=== PATIENT | female | born 2005 | race Two or more races ===

== ENCOUNTER 2023-10-06 12:50 | Inpatient (IN) ==
[2023-10-06] MEDS ORDERED: ERTAPENEM SODIUM 500 MG in SYRINGE 0 ML IV STA (14:10)
[2023-10-06 14:14] LABS: Basophils # (auto) 0.05 K/uL (0.00-0.20); Basophils % (auto) 0.5 %; Hematocrit (blood only) 36.9 % (37.0-47.0); Hemoglobin 11.9 g/dl (12.0-16.0); Immature Granulocytes # (auto) 0.03 K/uL (0.01-0.20); Immature Granulocytes % (auto) 0.3 %; Lymphocytes # (auto) 1.62 K/uL (1.20-3.40); Lymphocytes % (auto) 16.5 %; Mean Corpuscular Hemoglobin 26.4 pg (25.0-34.0); Mean Corpuscular Hgb Conc 32.2 g/dL (32.0-36.0); Mean Platelet Volume 8.8 fL (9.4-12.4); Monocytes # (auto) 0.66 K/uL (0.11-0.59); Monocytes % (auto) 6.7 %; Neutrophils # (auto) 7.44 K/uL (1.40-6.50); Platelet Count 347 K/uL (130-400); RDW Coefficient of Variation 17.6 % (11.5-14.5); RDW Standard Deviation 51.9 fL (36.4-46.3)
--- NOTE | 2023-10-06 14:14 | Emergency Department Note ---
Impression & Plan Pyelonephritis, UTI (urinary tract infection), Failure of outpatient treatment ED Provider Note NAME: ARGENTINA SOLIZ AGE: 18 SEX: F : 2005 ARRIVES VIA: Walk-In INFORMANT: [Patient] ED PROVIDER(S): [Sai Kwong MD] CHIEF COMPLAINT: Urinary symptoms HISTORY OF PRESENT ILLNESS: The patient is a 18-year-old female who is currently at the [facility]. She was seen on the of this month, 3 days ago. She was diagnosed with a UTI and placed on Cipro. The patient's urine culture has returned growing an ESBL. Only a few IV antibiotics and oral Macrobid will work to treat the infection. The patient apparently has been having some flank pain with the urinary symptoms, because of the flank pain on top of the findings of ESBL, the patient was sent to the hospital for admission and IV antibiotic therapy. Macrobid will not work if flank pain/pyelonephritis is suspected. The patient has not had nausea or vomiting. No fever. She has a history of frequent UTI. She has been hospitalized before for urinary tract infections. PMHx/PSHx/Social Hx: See Below PHYSICAL EXAM: GENERAL: Patient is in no acute distress. HEENT: No acute trauma, normocephalic atraumatic, mucous membranes moist, no nasal congestion. NECK: No stridor, no adenopathy, no meningismus, trachea is midline. LUNGS: Clear to auscultation bilaterally, no wheeze, no rhonchi, breath sounds equal. HEART: Without murmurs gallops or rubs, regular rate and rhythm. ABDOMEN: Soft, nontender, no peritonitis. Obese. EXTREMITIES: No cyanosis, full range of motion of all the joints without pain or difficulty. NEUROLOGIC: Oriented x 3, no acute motor or sensory deficits, no focal weakness. SKIN: No jaundice, no diaphoresis. Back: Bilateral flank discomfort to percussion. Psychiatric: Cooperative, voluntary, resting comfortably on the stretcher. DIFFERENTIAL DIAGNOSIS: Resistant UTI, pyelonephritis, renal failure, dehydration, among others. EMERGENCY DEPARTMENT PROCEDURES: MEDICAL DECISION MAKING: There is no leukocytosis or worrisome anemia. There is a normal platelet count. No renal failure or significant electrolyte abnormality. No worrisome liver enzyme elevation. Urinalysis showed potential infection. testing was negative. Urine culture from her last visit did show a resistant E. coli. On exam, the patient was not febrile or toxic. She did have bilateral flank discomfort. Patient by exam and history has pyelonephritis. Macrobid is not going to be sufficient. Based on her urine culture results, she requires IV antibiotics. She was given IV ertapenem. The patient will need a hospital stay for IV antibiotic therapy. She cannot be treated as an outpatient. She cannot be discharged back to the [facility] at this time. The patient is aware of her findings, she understands the reason for a hospital stay. Case management was consulted, the on-call hospitalist was consulted. Prior/Outside records/notes reviewed: Yesterday's pharmacy now describing her culture results and the need for a change in treatment Imaging/x-ray results per my interpretation: Chronic Medical/Social conditions affecting care: Currently an inpatient at the [facility]. Care/Management discussed with: Case management, the on-call hospitalist. Level of care consideration(s): After review of the information above and other included data: --I believe the patient requires escalation of care to admission DISPOSITION: Admission Past Med/Surg History Problem List Failure of outpatient treatment (Acute) UTI (urinary tract infection) (Acute) Symptoms of urinary tract infection (Acute) Acute urinary retention (Acute) Abdominal pain (Acute) Medical History Pyelonephritis Constipation Social History Smoking Status: Former smoker Tobacco Type: E-cigarettes / Vaping Second Hand Exposure: No; Do You Dip or Chew Tobacco: No; Tobacco Cessation Education Requested by Patient: No Hx Alcohol Use: Yes Alcohol type: hard liquor Hx Substance Use: Yes Last Used Substance Other:: 2022 Preferred Language: Serbian Communication Ability: Effective Hotel Office Manager Required: No Beliefs That Will Affect Care: None Current Living Situation: Parent Other Information That Helps Us Care for You: No Feels Safe at Home: Yes Assistive Devices: Glasses Allergies Allergies Allergy/AdvReac Type Severity Reaction Status Date / Time No Known Allergies Allergy Verified 10/03/23 00:53 Home Meds Home Medications Medication Instructions Recorded Confirmed albuterol sulfate 90 mcg/actuation 2 puff inhalation QID PRN 10/06/23 10/06/23 aerosol inhaler (Ventolin HFA) Shortness Of Breath Or Wheezing aripiprazole 20 mg tablet 20 mg PO HS 10/06/23 10/06/23 clotrimazole 2 % vaginal cream 1 appful vaginal HS 10/06/23 10/06/23 (Gyne-Lotrimin) famotidine 20 mg tablet 20 mg PO BID 10/06/23 10/06/23 ferrous sulfate 325 mg (65 mg 325 mg PO DAILY 10/06/23 10/06/23 iron) tablet fluticasone 100 mcg-salmeterol 50 1 inh inhalation BID 10/06/23 10/06/23 mcg/dose blistr powdr for inhalation haloperidol 10 mg tablet 10 mg PO Q8H PRN aggression 10/06/23 10/06/23 hydroxyzine HCl 50 mg tablet 50 mg PO BID PRN Anxiety 10/06/23 10/06/23 lamotrigine 300 mg tablet,extended 300 mg PO DAILY 10/06/23 10/06/23 release 24 hr lorazepam 1 mg tablet 1 mg PO Q8H PRN Anxiety 10/06/23 10/06/23 metformin 500 mg tablet 500 mg PO BIDWMEAL 10/06/23 10/06/23 nitrofurantoin 100 mg capsule 100 mg PO BID 10/06/23 10/06/23 oxcarbazepine 150 mg tablet 450 mg PO BID 10/06/23 10/06/23 (Trileptal) pantoprazole 40 mg tablet,delayed 40 mg PO DAILY 10/06/23 10/06/23 release pregabalin 75 mg capsule 75 mg PO BID 10/06/23 10/06/23 sennosides 8.6 mg capsule (senna) 8.6 mg PO DAILY PRN Constipation 10/06/23 10/06/23 sertraline 100 mg tablet 200 mg PO HS 10/06/23 10/06/23 trazodone 100 mg tablet 100 mg PO HS 10/06/23 10/06/23 Previous Rx's Medication Instructions Recorded polyethylene glycol 3350 17 17 g PO DAILY #510 grams 10/03/23 gram/dose oral powder (Miralax) Results & Data (ED) Vital Signs Vital Signs - 24 hr 10/06/23 12:54 Temperature 36.8 C Temperature Source Temporal Artery Scan Pulse Rate 94 H Respiratory Rate 18 Blood Pressure 116/75 Blood Pressure Mean 88 Pulse Oximetry 96 Sepsis Recent Fever Within 48 Hours No Sepsis New/Unexplained Change in Mental Status No Sepsis Action Taken by Nursing No Action Required Home Medications Current Medication List: was personally reviewed by me Laboratory Data Attestation: I reviewed the patient's lab results. 10/06/23 13:50 10/06/23 13:50 Lab Results 10/06/23 10/06/23 10/06/23 Range/Units 12:58 13:50 13:57 WBC 9.80 (4.8-10.8) K/ul RBC 4.50 (4.20-5.40) M/uL Hgb 11.9 L (12.0-16.0) g/dl Hct 36.9 L (37.0-47.0) % MCV 82.0 (80.0-100.0) fL MCH 26.4 (25.0-34.0) pg MCHC 32.2 (32.0-36.0) g/dL RDW Std Deviation 51.9 H (36.4-46.3) fL RDW Coeff of Aletha 17.6 H (11.5-14.5) % Plt Count 347 (130-400) K/uL MPV 8.8 L (9.4-12.4) fL Immature Gran % (Auto) 0.3 % Neut % (Auto) 76.0 % Lymph % (Auto) 16.5 % Upson % (Auto) 6.7 % Eos % (Auto) 0.0 % Baso % (Auto) 0.5 % Neut # (Auto) 7.44 H (1.40-6.50) K/uL Lymph # (Auto) 1.62 (1.20-3.40) K/uL Upson # (Auto) 0.66 H (0.11-0.59) K/uL Eos # (Auto) 0.00 (0.00-0.50) K/uL Baso # (Auto) 0.05 (0.00-0.20) K/uL Immature Gran # (Auto) 0.03 (0.01-0.20) K/uL Sodium 138 (136-145) mmol/L Potassium 4.1 (3.5-5.1) mmol/L Chloride 104 (98-107) mmol/L Carbon Dioxide 30 (21-32) mmol/L Anion Gap 4 (3-11) BUN 11 (6-23) mg/dl Creatinine 0.72 (0.6-1.2) mg/dl Est Cr Clr Drug Dosing 182.6 ml/min Est GFR ( Amer) 139.7 ml/min Est GFR (Non-Af Amer) 120.6 ml/min BUN/Creatinine Ratio 15.3 (10-20) Glucose 85 (70-99(Fasting)) mg/dl Calcium 9.3 (8.6-10.3) mg/dl Total Bilirubin 0.2 (0.2-1.0) mg/dl AST 13 (13-39) U/L ALT 18 (7-52) U/L Alkaline Phosphatase 75 (34-104) U/L Total Protein 7.3 (6.0-8.3) gm/dl Albumin 4.0 (3.4-5.0) gm/dl Globulin 3.3 (2.5-4.0) gm/dl Albumin/Globulin Ratio 1.2 (0.9-2) Urine Color Dark Yellow Urine Appearance Cloudy A (Clear) Urine pH 7.5 (4.5-7.5) Ur Specific [place] 1.025 (1.000-1.030) Urine Protein 1+ H (Negative) Urine Glucose (UA) Negative (Negative) Urine Ketones Trace H (Negative) Urine Blood 3+ H (Negative) Urine Nitrite Negative (Negative) Urine Bilirubin Negative (Negative) Urine Urobilinogen Negative (Negative) Ur Leukocyte Esterase 1+ H (Negative) Urine WBC (Auto) 6-10 H (0-5) /hpf Urine RBC (Auto) >20 H (0-2) /hpf U Hyaline Cast (Auto) 0-2 (0-2) /lpf U Epithel Cells (Auto) 6-10 H (0-2) /hpf Urine Bacteria (Auto) None Seen (None Seen) POC Ur Test NEG (NEG) Administered Medications Discontinued Medications Ertapenem 1,000 mg/ Syringe 10 mls @ 2 mls/min IV NOW STA Stop: 10/06/23 14:29 Last Admin: 10/06/23 15:05 Dose: 2 mls/min Documented By: HARMEET Metformin HCl (Metformin Hcl 500 Mg Tab) [facility] Stop: 11/05/23 16:59 Last Admin: 10/06/23 17:46 Dose: Not Given Documented By: DEMETRIO Discharge Plan Visit Data Chief Complaint: Urinary Symptoms Stated Complaint: UTI ED Provider: Sai Kwong Discharge Problem: Pyelonephritis, UTI (urinary tract infection), Failure of outpatient treatment Patient Disposition: Admitted As Inpatient Condition: Good Discharge Instructions Interventions: ED Discharge Assessment Last Done: 10/06/23 16:17 Discharge Problem: UTI (urinary tract infection) Qualifiers: Urinary tract infection type: acute pyelonephritis Qualified Code(s): N10 - Acute pyelonephritis
[2023-10-06 14:19] LABS: Albumin Globulin Ratio 1.2 (0.9-2); BUN Creatinine Ratio 15.3 (10-20); Bilirubin,Total 0.2 mg/dl (0.2-1.0); Calcium 9.3 mg/dl (8.6-10.3); Creatinine Clr Calc Pharmacy 182.6 ml/min; Est GFR (African American) 139.7 ml/min; Est GFR (Non-African American) 120.6 ml/min; Globulin 3.3 gm/dl (2.5-4.0); Potassium 4.1 mmol/L (3.5-5.1); Total Protein 7.3 gm/dl (6.0-8.3)
[2023-10-06 14:23] LABS: Appearance Urine Cloudy (Clear); Bacteria Urine Automated None Seen (None Seen); Bilirubin Urine Negative (Negative); Blood Urine 3+ (Negative); Cast Urine Automated 0-2 /lpf (0-2); Color Urine Dark Yellow; Glucose Urine UA Negative (Negative); Ketones Urine Trace (Negative); Leukocyte Esterase Urine 1+ (Negative); Nitrite Urine Negative (Negative); Protein Urine 1+ (Negative); RBC Urine Automated >20 /hpf (0-2); Specific Gravity Urine 1.025 (1.000-1.030); Urobilinogen Urine Negative (Negative); pH Urine 7.5 (4.5-7.5)
--- NOTE | 2023-10-06 14:27 | History & Physical Report ---
Date of Service October 06, 2023 Assessment & Plan (1) UTI due to extended-spectrum beta lactamase (ESBL) producing Escherichia coli: (2) Recurrent UTI: Plan: Patient is 18 year old female with PMH recurrent UTI, pyelonephritis, depression, anxiety, bipolar, schizoaffective disorder, seizure disorder, asthma, migraine headache, iron deficiency anemia, PCOS, obesity presented to ER for abnormal urine culture. Urinary symptoms and abdominal and bilateral back p ain since 09/16/23. Tried on multiple outpatient antibiotics. 10/01/[address] abdomen pelvis and was started on Cipro for UTI 10/01/23 urine culture +ESBL e coli. 10/05/23 was recommended to discontinue cipro and start macrobid however pt with continued symptoms In ER afebrile, vitals stable. No leukocytosis In ER given ertapenem Will continue ertapenem CBC, BMP in am (3) Suicidal ideation: (4) Schizoaffective disorder: (5) Depression with anxiety: Plan: Currently at [facility] as voluntary admission for suicidal ideation and reported cutting and auditory hallucinations. Currently "feel better if I was just " but denies any active plan Will continue current medications that has been on from [facility] to one observation Suicide precautions Mental health consult (6) Asthma: Plan: No signs acute exacerbation Continue home inhalers (7) GERD (gastroesophageal reflux disease): Plan: Continue PPI, famotidine (8) Seizure disorder: Plan: Last reported seizure 01/2023 Continue home Lamictal (9) Iron deficiency anemia: Plan: H&H stable Continue ferrous sulfate DVT Prophylaxis- sc lovenox, Ambulate Admit med surg Full Code as per discussion with pt Pt was seen and care coordinated with Dr Shirley. See addendum I spent a total of 78 minutes reviewing notes, outpatient records, labs, medication, coordinating, documenting and providing care for this patient excluding time spent in the performance of separately billed services. History of Present Illness Chief Complaint: Abnormal urine culture Primary Care Provider: NO PCP Patient is 18 year old female with PMH recurrent UTI, pyelonephritis, depression, anxiety, bipolar, schizoaffective disorder, seizure disorder, asthma, migraine headache, iron deficiency anemia, PCOS, obesity presented to ER for abnormal urine culture. History obtained from patient as well as outpatient chart review. Patient reports dysuria, urinary frequency, urinary hesitancy and intermittent urinary retention as well as bilateral flank and lower abdominal pain since 09/16/2023. She is currently at the [facility] for the past 3 weeks per patient for suicidal ideations and auditory hallucinations. Patient reports was started on Bactrim for UTI followed by Augmentin however s ymptoms never improved. She was seen here at [facility] ER on 10/01/2023 for back and abdominal pain and urinary symptoms and had unremarkable CT abdomen pelvis and was started on Cipro for UTI per notes. Seen again on 10/03/23 in ER for urinary retention requiring straight cath and then able to self urinate. 10/01/23 urine culture +ESBL e coli. 10/05/23 was recommended to discontinue cipro and start macrobid. Reports chronic constipation. Reports chronic daily headaches and feels this is baseline. Denies other abdominal pain. Reports chronic SOB and denies any increased SOB or cough or wheezing. Denies fever/chills, diaphoresis, N/V/D, dizziness, syncope, vision changes, neck pain, CP, sore throat, otalgia, rhinorrhea, extremity weakness, extremity edema, rashes, urinary symptoms. Currently at [facility] as voluntary admission for suicidal ideation and reported cutting and auditory hallucinations. She states currently "feel better if I was just " but denies any active plan today to this provider. She states she has auditory hallucinations that tell her to hurt or kill herself. Patient states that she has been becoming agitated while hospitalized because she is frustrated with the voices talking to her. She admits to feeling depressed. She states she is currently living in [place], [place] but is from [place]. Patient reports history recurrent psych admissions since age 12 for similar symptoms. ER case contacted [facility] reported unable to provide daily transport for patient to receive outpatient IV antibiotics. Allergies Allergy/AdvReac Type Severity Reaction Status Date / Time No Known Allergies Allergy Verified 10/03/23 00:53 Home Medications Medication Instructions Recorded Confirmed Type polyethylene glycol 3350 17 17 g PO DAILY #510 grams 10/03/23 10/06/23 Rx gram/dose oral powder (Miralax) albuterol sulfate 90 mcg/actuation 2 puff inhalation QID PRN 10/06/23 10/06/23 History aerosol inhaler (Ventolin HFA) Shortness Of Breath Or Wheezing aripiprazole 20 mg tablet 20 mg PO HS 10/06/23 10/06/23 History clotrimazole 2 % vaginal cream 1 appful vaginal HS 10/06/23 10/06/23 History (Gyne-Lotrimin) famotidine 20 mg tablet 20 mg PO BID 10/06/23 10/06/23 History ferrous sulfate 325 mg (65 mg 325 mg PO DAILY 10/06/23 10/06/23 History iron) tablet fluticasone 100 mcg-salmeterol 50 1 inh inhalation BID 10/06/23 10/06/23 History mcg/dose blistr powdr for inhalation haloperidol 10 mg tablet 10 mg PO Q8H PRN aggression 10/06/23 10/06/23 History hydroxyzine HCl 50 mg tablet 50 mg PO BID PRN Anxiety 10/06/23 10/06/23 History lamotrigine 300 mg tablet,extended 300 mg PO DAILY 10/06/23 10/06/23 History release 24 hr lorazepam 1 mg tablet 1 mg PO Q8H PRN Anxiety 10/06/23 10/06/23 History metformin 500 mg tablet 500 mg PO BIDWMEAL 10/06/23 10/06/23 History nitrofurantoin 100 mg capsule 100 mg PO BID 10/06/23 10/06/23 History oxcarbazepine 150 mg tablet 450 mg PO BID 10/06/23 10/06/23 History (Trileptal) pantoprazole 40 mg tablet,delayed 40 mg PO DAILY 10/06/23 10/06/23 History release pregabalin 75 mg capsule 75 mg PO BID 10/06/23 10/06/23 History sennosides 8.6 mg capsule (senna) 8.6 mg PO DAILY PRN Constipation 10/06/23 10/06/23 History sertraline 100 mg tablet 200 mg PO HS 10/06/23 10/06/23 History trazodone 100 mg tablet 100 mg PO HS 10/06/23 10/06/23 History Past Med/Surg History Problem List (Updated 10/06/23 @ 19:12 by Isabell Leal PA-C) Suicidal ideation UTI due to extended-spectrum beta lactamase (ESBL) producing Escherichia coli History of migraine Iron deficiency anemia Seizure disorder Depression with anxiety Schizoaffective disorder Recurrent UTI Obesity GERD (gastroesophageal reflux disease) Asthma Failure of outpatient treatment (Acute) UTI (urinary tract infection) (Acute) Symptoms of urinary tract infection (Acute) Acute urinary retention (Acute) Abdominal pain (Acute) Medical History (Updated 10/06/23 @ 19:12 by Isabell Leal PA-C) Pyelonephritis Constipation Surgical History (Updated 10/06/23 @ 19:08 by Isabell Leal PA-C) Hx of tonsillectomy Social History Smoking Status: Former smoker Tobacco Type: E-cigarettes / Vaping Second Hand Exposure: No; Do You Dip or Chew Tobacco: No; Tobacco Cessation Education Requested by Patient: No Hx Alcohol Use: Yes Alcohol type: hard liquor Hx Substance Use: Yes Last Used Substance Other:: 2022 Preferred Language: Gambian Communication Ability: Effective Veneer Taping Machine Offbearer Required: No Beliefs That Will Affect Care: None Current Living Situation: Parent Other Information That Helps Us Care for You: No Feels Safe at Home: Yes Assistive Devices: Glasses Review of Systems Review of Systems: All systems reviewed & are unremarkable except as noted in HPI & below Physical Exam Physical Exam: General: no distress, obese female Head: normocephalic, atraumatic Eyes: conjunctiva non-injected, anicteric ENT: normal inspection external ears, nose, mucous membranes moist Neck: supple, trachea midline Lungs: clear, no respiratory distress, no wheezing/rhonchi/rales CV: RRR, no murmur, no pretibial edema Abd: protuberant, normal BS, soft, + diffuse tenderness to palpation entire lower abdomen and bilateral CVA tenderness Ext: no cyanosis, no calf tenderness Neuro: A&O x 3, no focal deficits noted, somewhat flat affect Skin: warm, dry Results & Data Results & Data Vital Signs (Past 12 Hours) Vital Signs Temp Pulse Resp BP Pulse Ox 10/06/23 12:54 36.8 C 94 H 18 116/75 96 Laboratory Results Short CBC 10/06/23 Range/Units 13:50 WBC 9.80 (4.8-10.8) K/ul Hgb 11.9 L (12.0-16.0) g/dl Hct 36.9 L (37.0-47.0) % Plt Count 347 (130-400) K/uL BMP 10/06/23 13:50 Sodium 138 Potassium 4.1 Chloride 104 Carbon Dioxide 30 BUN 11 Creatinine 0.72 Glucose 85 Calcium 9.3 Liver Function 10/06/23 Range/Units 13:50 Total Bilirubin 0.2 (0.2-1.0) mg/dl AST 13 (13-39) U/L ALT 18 (7-52) U/L Alkaline Phosphatase 75 (34-104) U/L Albumin 4.0 (3.4-5.0) gm/dl Urine 10/06/23 Range/Units 13:57 Urine Color Dark Yellow Urine Appearance Cloudy A (Clear) Urine pH 7.5 (4.5-7.5) Ur Specific [place] 1.025 (1.000-1.030) Urine Protein 1+ H (Negative) Urine Glucose (UA) Negative (Negative) Supervising Physician Co-Signing Physician Notes Patient was seen and examined with Isabell POWERS at bedside. Chart reviewed. Case discussed with Isabell POWERS and agree with the documentation above. In summary, this is a 18 year old female with schizoaffective disorder/bipolar/borderline personality disorder, depression/anxiety, suicidal ideation and attempts, morbid obesity, recurrent UTI who was brought back to ED for ESBL E Coli UTI for IV antibiotics. She is currently at [facility]. I spoke to if she can get the daily IV antibiotic at [facility] but I was told that the facility can not transport her daily. Will start on iv ertapenem 1 gm q24hr for her complicated UTI with clinical pyelonephritis. Not septic or toxic but is at risk for agitation given her hsitory. Unfortunately, she will be here to complete IV antibiotics duration given her psych history. On exam, morbidly obese, lying comfortably in bed, drowsy due to sedating medications she received prior to ER transfer for agitation, but conversing appropriately, chest clear, heart sounds normal, abd benign, calm, cooperative. Rest as per the note above.
[2023-10-06] MEDS: ERTAPENEM SODIUM 1,000 MG in SYRINGE 0 ML IV STA (15:05)
[2023-10-06] MEDS ORDERED: ONDANSETRON INJ 2 MG/ML 2 ML VIAL IV PRN (16:34)
[2023-10-06] MEDS ORDERED: ALBUTEROL HFA 8 GM INHALER INH PRN (16:36)
[2023-10-06] MEDS ORDERED: Nursing to Pharmacy Communication SCH (17:30)
[2023-10-06] MEDS: metFORMIN HCL 500 MG TAB PO SCH ×2 (17:46→21:01)
[2023-10-06] MEDS: CLOTRIMAZOLE VAGINAL CR 7 APPLN/45 GM TUBE PV SCH (20:59)
[2023-10-06] MEDS: PREGABALIN 75 MG CAP PO SCH (20:59)
[2023-10-06] MEDS: FAMOTIDINE 20 MG TAB PO SCH (20:59)
[2023-10-06] MEDS: SERTRALINE HCL 100 MG TABLET PO SCH (21:00)
[2023-10-06] MEDS: ARIPiprazole 10 MG TAB PO SCH (21:00)
[2023-10-06] MEDS: OXcarbazepine 150 MG TABLET PO SCH (21:00)
[2023-10-06] MEDS: traZODone HCL 100 MG TAB PO SCH (21:00)
[2023-10-06] MEDS: ACETAMINOPHEN 325 MG TAB PO PRN (21:10)
--- OUTSIDE RECORDS SUMMARY | 2023-10-06 21:45 | External Medical Summary ---
Author Name Unknown Address Unknown Organization K1M:[facility] [address] [place] [id number] Laboratory Report Ordering Provider Test Date Status LAVELLEMYDER 09/14/2023 19:08 Final Observation Date Value Abnormality Reference (Units ) Status Salicylates 09/14/2023 19:08 <3.0 Below low normal 15.0 -30.0 (mg/dL) Final This assay should not be use d for patients receiving
Sulfasalazine. The potential exists for reporting falsely
elevated results from patients who have been administered
Sulfasalazine. Performing Location [facility] [address] [place] [id number]
--- OUTSIDE RECORDS SUMMARY | 2023-10-06 21:45 | External Medical Summary ---
Author Name Unknown Address Unknown Organization M:[facility] [address] [place] [address] Laboratory Report Ordering Provider Test Date Status DIANA VALDERRAMA 09/14/2023 19:08 Final Observation Date Value Abnormality Reference (Units ) Status Glucose 09/14/2023 19:08 =90 74-106 (mg/dL) Final BUN 09/14/2023 19:08 =8 Below low normal 9-23 (mg/dL) Final Creatinine 09/14/2023 19:08 =0.73 0.55-1.30 (mg/dL) Final Calcium 09/14/2023 19:08 =9.5 8.7-10.4 (mg/dL) Final Protein 09/14/2023 19:08 =7.5 5.7-8.2 (g/dL) Final Albumin 09/14/2023 19:08 =3.7 3.4-5.0 (g/dL) Final Bilirubin, Total 09/14/2023 19:08 =0.30 0.3-1.20 (mg/dL) Final AST (Aspartate aminotransferase) 09/14/2023 19:08 =9 Below low normal 13-40 (U/L) Final ALT (Alanine aminotransferase) 09/14/2023 19:08 =22 7-40 (U/L) Final Alk Phos 09/14/2023 19:08 =77 46-116 (U/L) Final Sodium 09/14/2023 19:08 =140 136-145 (mmol/L) Final Potassium 09/14/2023 19:08 =3.9 3.4-5.1 (mmol/L) Final Cl 09/14/2023 19:08 =107 98-107 (mmol/L) Final CO2 09/14/2023 19:08 =26.0 20.0-31.0 (mmol/L) Final Glomerular filtration rate/1.73 sq M.predicted among non-blacks [Volume Rate/Area] in Serum, Plasma or Blood by Creatinine-based formula (CKD-EPI) 09/14/2023 19:08 >60.0 60.0-128.0 Final The Glomerular Filtration Ra te result is an estimation only
and is based on the CKD-EPI 2020 equation that does not use
a race coefficient. For eGFRcr 80-90% of values are within
30% of measured GFR. It is not suitable for patients less
than 17 years of age or for patients receiving dialysis
therapy. Results may deviate from true GFR values with
extremes of body composition, dietary intake, severe liver
disease, alteration in creatinine generation, conditions
with extra renal elimination of creatinine, or drugs that
affect tubular secretion of creatinine. Normal eGFRcr
varies according to age, sex and body composition.
NKF KDOQI and KDIGO guidelines recommend ordering urine
microalbumin/creatinine ratio and/or cystatin C for patients
with eGFRcr of 45-59 ML/MIN/1.73 m2. Performing Location [facility] [address] [place] [address]
--- OUTSIDE RECORDS SUMMARY | 2023-10-06 21:45 | External Medical Summary ---
Author Name Unknown Address Unknown Organization K1M:[facility] [address] [place] [id number] Laboratory Report Ordering Provider Test Date Status DIANA VALDERRAMA 09/14/2023 19:08 Final Observation Date Value Abnormality Reference (Units ) Status aPTT, 0 Min 09/14/2023 19:08 =32.8 Above high normal 23. 9-29.9 (s) Final The activated partial thromb oplastin time (APTT) is the test
of choice for monitoring anticoagulant therapy with
unfractionated heparin. An APTT range of 40.7-73.9 seconds
is considered therapeutic for heparin doses with a
concentration of 0.3-0.5 IU/mL. The APTT is not an
appropriate test for monitoring the effects of low molecular
weight heparin. For low molecular weight heparin,
monitoring is often not necessary, but the heparin anti-Xa
assay may be used. With this assay the therapeutic range
for low molecular wieght heparin is 0.6-1.0 IU/ml. The
prophylactic range is 0.1-0.5 IU/ml. Performing Location [facility] [address] [place] [id number]
--- OUTSIDE RECORDS SUMMARY | 2023-10-06 21:45 | External Medical Summary ---
Author Name Unknown Address Unknown Organization K1M:[facility] [address] [place] [address] Laboratory Report Ordering Provider Test Date Status DIANA VALDERRAMA 09/14/2023 19:08 Final Observation Date Value Abnormality Reference (Units ) Status Prothrombin time (PT) in Blood by Coagulation assay 09/14/2023 19:08 =10.9 9.6-12.3 (s) Final INR 09/14/2023 19:08 =0.96 Fin al The prothrombin time (PT) te st is the test of choice for
monitoring anticoagulant treatment with warfarin. An INR
range of 2.0-3.0 is considered therapeutic for most
indications such as DVT/PE, atrial fibrillation and
myocardial infarction while an INR range of 2.5-3.5 is
considered therapeutic for patients with mechanical heart
valves. Performing Location [facility] [address] [place], [place] [id number]
--- OUTSIDE RECORDS SUMMARY | 2023-10-06 21:45 | External Medical Summary ---
Author Name Unknown Address Unknown Organization K1M:[facility] [address] [place] [address] Laboratory Report Ordering Provider Test Date Status DIANA VALDERRAMA 09/14/2023 19:08 Final Observation Date Value Abnormality Reference (Units ) Status Acetaminophen 09/14/2023 19:08 <2.0 Below low normal 10 .0-20.0 (ug/mL) Final Performing Location [facility] [address] [place] [address]
--- OUTSIDE RECORDS SUMMARY | 2023-10-06 21:45 | External Medical Summary ---
Author Name Unknown Address Unknown Organization K1M:[facility] [address] [place] [address] Laboratory Report Ordering Provider Test Date Status DIANA VALDERRAMA 09/14/2023 11:39 Final Observation Date Value Abnormality Reference (Units ) Status MDMA+METABOLITES 09/14/2023 11:39 Negative Cutoff =250 Final Performed at: XB - [facility]
[address] [place] [id number]
Dental Intern: Gin Walsh MD, Phone: [phone] Performing Location [facility] [address] [place] [address]
--- OUTSIDE RECORDS SUMMARY | 2023-10-06 21:45 | External Medical Summary ---
Author Name Unknown Address Unknown Organization K1M:[facility] [address] [place] [address] Laboratory Report Ordering Provider Test Date Status DIANA VALDERRAMA 09/14/2023 11:39 Final Urine Specimen Type Clean Ca tch Specimen
Has specimen been collected/obtained? Y Observation Date Value Abnormality Reference (Units ) Status Color, Urine 09/14/2023 11:39 YELLOW Final Clarity, Urine 09/14/2023 11:39 Slightly-Cloudy Final Specific gravity, Urine 09/14/2023 11:39 =1.026 1.003-1.035 Final pH, Urine 09/14/2023 11:39 =6 5-7 Final Glucose [Presence] in Urine 09/14/2023 11:39 [id number] NEGATIVE Final Bilirubin.total [Presence] in Urine by Automated test strip 09/14/2023 11:39 [id number] NEGATIVE Final Ketones, Urine 09/14/2023 11:39 [id number] NEGATIVE Final Blood [Presence] in Urine by Visual 09/14/2023 11:39 [id number] NEGATIVE Final Protein, Urine 09/14/2023 11:39 NEGATIVE NEGATIVE Final Note: For females N EG - TRACE Urobilinogen [Presence] in Urine by Automated test strip 09/14/2023 11:39 0.2-1.0 0.2-1.0 Final Nitrite, Urine 09/14/2023 11:39 [id number] NEGATIVE Final Leukocyte esterase [Presence] in Urine by Automated test strip 09/14/2023 11:39 [id number] NEGATIVE Fin al Erythrocytes [Presence] in Urine sediment by Light microscopy 09/14/2023 11:39 0-2 <6-10 Final Leukocytes [Presence] in Urine sediment by Light microscopy 09/14/2023 11:39 0-5 <6-10 Final Epithelial cells.squamous [Presence] in Urine by Automated 09/14/2023 11:39 FEW Above upper panic limits <FEW Final Bacteria [Presence] in Urine by Automated 09/14/2023 11:39 RARE Above upper panic limits <RARE Final Mucus [#/area] in Urine sediment by Automated count 09/14/2023 11:39 MODERATE Above upper panic limits <RARE Final Performing Location [address] [address]
--- OUTSIDE RECORDS SUMMARY | 2023-10-06 21:45 | External Medical Summary ---
Author Name Unknown Address Unknown Organization K1M:[facility] [address] [place] [address] Laboratory Report Ordering Provider Test Date Status LAVELLEMYDER 09/14/2023 19:08 Final Observation Date Value Abnormality Reference (Units ) Status Salicylates 09/14/2023 19:08 <3.0 Below low normal 15.0 -30.0 (mg/dL) Final This assay should not be use d for patients receiving
Sulfasalazine. The potential exists for reporting falsely
elevated results from patients who have been administered
Sulfasalazine. Performing Location [facility] [address] [place] [id number]
--- OUTSIDE RECORDS SUMMARY | 2023-10-06 21:45 | External Medical Summary ---
Author Name Unknown Address Unknown Organization K1M:[facility] [address] [place] [address] Laboratory Report Ordering Provider Test Date Status DIANA VALDERRAMA 09/14/2023 19:08 Final Observation Date Value Abnormality Reference (Units ) Status Acetaminophen 09/14/2023 19:08 <2.0 Below low normal 10 .0-20.0 (ug/mL) Final Performing Location [facility] [address] [place] [address]
--- OUTSIDE RECORDS SUMMARY | 2023-10-06 21:45 | External Medical Summary ---
Author Name Unknown Address Unknown Organization K1M:[facility] [address] [place] [address] Laboratory Report Ordering Provider Test Date Status LAVELLEDIANA 09/14/2023 19:14 Final Document if MAT GAUGER or OP type sp ecimen. MAT GAUGER
Has specimen been collected/obtained? Y Observation Date Value Abnormality Reference (Units ) Status SARS-CoV-2 (COVID-19) RNA [Presence] in Specimen by VICTOR MANUEL with probe detection 09/14/2023 19:14 NEGATIVE NEGATIVE Final Negative results do not prec lude SARS-CoV-2 infection and
should not be used as the sole basis for treatment or other
patient management decisions. Negative results must be
combined with clinical observations, patient history, and
epidemiological information.

SARS-CoV-2 tests at [facility] are performed
either on the [employer] GeneXpert or [employer].
Both tests are real-time polymerase chain reaction (PCR)
tests designed to detect RNA from SARS-CoV-2. Performing Location [facility] [address] [place] [address]
--- OUTSIDE RECORDS SUMMARY | 2023-10-06 21:45 | External Medical Summary ---
Author Name Unknown Address Unknown Organization M:[facility] [address] [place] [address] Laboratory Report Ordering Provider Test Date Status DIANA VALDERRAMA 09/14/2023 19:08 Final Observation Date Value Abnormality Reference (Units ) Status WBC, Total 09/14/2023 19:08 =11.0 Above high normal 3.2-10.6 (10*3/uL) Final RBC 09/14/2023 19:08 =4.92 3.67-5.38 (10*6/uL) Final Hemoglobin 09/14/2023 19:08 =12.6 11.0-15.7 (g/dL) Final HCT 09/14/2023 19:08 =40.1 34.3-47.5 (%) Final MCV 09/14/2023 19:08 =81.5 Below low normal 83.0-101.0 (fL) Final MCH 09/14/2023 19:08 =25.6 Below low normal 27.6-33.6 (pg) Final MCHC 09/14/2023 19:08 =31.4 Below low normal 31.5-35.0 (g/dL) Final RDW 09/14/2023 19:08 =19.2 Above high normal 11.3-15.4 (%) Final Platelets 09/14/2023 19:08 =352 125-367 (10*3/uL) Final MPV 09/14/2023 19:08 =8.6 Below low normal 8.9-12.5 (fL) Final Absolute Segs 09/14/2023 19:08 =79.9 (%) Final Lymphs % 09/14/2023 19:08 =14.2 (%) Final Monos 09/14/2023 19:08 =5.3 (%) Final Eosinophils 09/14/2023 19:08 =0.0 (%) Final Basos 09/14/2023 19:08 =0.3 (%) Final Immature Granulocyte, Percent 09/14/2023 19:08 =0.3 (%) Final Nucleated erythrocytes/100 leukocytes [Ratio] in Blood by Automated count 09/14/2023 19:08 =0.0 (%) Final Absolute Segs 09/14/2023 19:08 =8.8 Above high normal 1.2-7.3 (10*3/uL) Final Lymphocytes [#/volume] in Specimen by Automated count 09/14/2023 19:08 =1.6 0.5-3.5 (10*3/uL) Final Monos, Abs 09/14/2023 19:08 =0.6 0.2-0.7 (10*3/uL) Final Eos, Abs 09/14/2023 19:08 =0.0 0.0-0.4 (10*3/uL) Final Basos, Abs 09/14/2023 19:08 =0.0 0.0-0.2 (10*3/uL) Final Immature granulocytes [#/volume] in Blood 09/14/2023 19:08 =0.0 0.0-0.1 (10*3/uL) Final Nucleated erythrocytes/100 leukocytes [Ratio] in Blood by Automated count 09/14/2023 19:08 =0.0 0.0-0.0 (10*3/uL) Final Performing Location [facility] [address] [place] [address]
--- OUTSIDE RECORDS SUMMARY | 2023-10-06 21:45 | External Medical Summary ---
Author Name Unknown Address Unknown Organization K1M:[facility] [address] [place] [address] Laboratory Report Ordering Provider Test Date Status DIANA VALDERRAMA 09/14/2023 19:08 Final Observation Date Value Abnormality Reference (Units ) Status Choriogonadotropin ( test) [Presence] in Serum by Rapid immunoassay 09/14/2023 19:08 [id number] NEGATIVE Final Performing Location [facility] [address] [place] [address]
--- OUTSIDE RECORDS SUMMARY | 2023-10-06 21:45 | External Medical Summary ---
Author Name Unknown Address Unknown Organization K1M:[facility] [address] [place] [address] Laboratory Report Ordering Provider Test Date Status DIANA VALEDRRAMA 09/14/2023 19:08 Final Observation Date Value Abnormality Reference (Units ) Status TSH 09/14/2023 19:08 =1.72 0.55-4.78 (u[ iU]/mL) Final Performing Location [facility] [address] [place] [address]
--- OUTSIDE RECORDS SUMMARY | 2023-10-06 21:45 | External Medical Summary ---
Author Name Unknown Address Unknown Organization K1M:[facility] [address] [place] [address] Laboratory Report Ordering Provider Test Date Status DIANA VALDERRAMA 09/14/2023 19:08 Final Observation Date Value Abnormality Reference (Units ) Status T4, Total 09/14/2023 19:08 =6.40 4.50-10.90 (u g/dL) Final Performing Location [facility] [address] [place] [address]
--- OUTSIDE RECORDS SUMMARY | 2023-10-06 21:45 | External Medical Summary ---
Author Name Unknown Address Unknown Organization K1M:[facility] [address] [place] [address] Laboratory Report Ordering Provider Test Date Status DIANA VALDERRAMA 09/14/2023 19:08 Final Observation Date Value Abnormality Reference (Units ) Status Ethanol 09/14/2023 19:08 <3.0 <3.0 (mg/dL) Final Performing Location [facility] [address] [place] [address]
[2023-10-06] MEDS: ENOXAPARIN INJ 40 MG/0.4 ML SYR SQ SCH (22:09)
[2023-10-06] MEDS: LORazepam 1 MG TAB PO PRN (22:09)
[2023-10-07 06:27] LABS: Hemoglobin 11.1 g/dl (12.0-16.0); Mean Corpuscular Hgb Conc 31.7 g/dL (32.0-36.0); Mean Platelet Volume 8.9 fL (9.4-12.4); Platelet Count 305 K/uL (130-400); RDW Coefficient of Variation 17.7 % (11.5-14.5); Red Blood Count 4.27 M/uL (4.20-5.40)
[2023-10-07 06:52] LABS: BUN Creatinine Ratio 18.5 (10-20); Calcium 8.8 mg/dl (8.6-10.3); Creatinine Clr Calc Pharmacy 202.2 ml/min; Est GFR (African American) 148.1 ml/min; Est GFR (Non-African American) 127.8 ml/min; Potassium 3.9 mmol/L (3.5-5.1)
[2023-10-07] MEDS: FERROUS SULFATE 325 MG TAB PO SCH (09:09)
[2023-10-07] MEDS: FLUTICASONE/VILANTEROL 100/25MCG 14 PUFFS/INHALER INH SCH (09:09)
[2023-10-07] MEDS: POLYETHYLENE (MIRALAX) 17 GM PACK PO SCH (09:10)
[2023-10-07] MEDS: PANTOprazole 40 MG TAB PO SCH (09:10)
--- NOTE | 2023-10-07 10:06 | CT Scan Report ---
CT OF THE ABDOMEN AND PELVIS WITHOUT CONTRAST CLINICAL HISTORY: Urinary tract infection, r/o pyelonephritis COMPARISON STUDY: CT of the abdomen and pelvis October 01, 2023 and KUB October 03, 2023. TECHNIQUE: Axial images of the abdomen and pelvis were obtained without IV contrast. Images were revi ewed in the axial, sagittal, and coronal planes. Automated exposure control was utilized for the aislinn dy. A dose lowering technique was utilized adhering to the principles of ALARA. FINDINGS: Lung bases are unremarkable. No pneumatosis, free air or portal venous gas is present. Ther e are no renal, ureteral or bladder calculi. No perinephric infiltration is present. No renal fluid c ollections are identified on unenhanced exam. Unenhanced images of the liver, spleen, adrenal glands and pancreas are unremarkable. There is no evidence for acute appendicitis. There is moderate stool w ithin the colon and rectum. No fluid collections are present. There is no free fluid. No biliary or p ancreatic ductal dilatation. IMPRESSION: 1. No urinary calculi or hydronephrosis. 2. Unremarkable appearance of the kidneys on unenhanced CT. 3. No bowel obstruction. No evidence for acute appendicitis. ACT 112: Negative or not required by law. Electronically signed by: Aguila Lopez M.D. 10/07/2023 10:04 AM
--- NOTE | 2023-10-07 13:39 | Psychiatric Consultation ---
Date of Consultation October 07, 2023 Impression / Recommendations Impression 18 y/o F h/o MAICO LOZANO who presents as a voluntary patient from [facility] for severe UTI requiring IV Abx. Psychiatry consulted for evaluation. She presents a history of AVH and Cluster B symptoms which appear to be chronic and no recent worsening. Her thoughts are organized. She presented recent self with cutting and plans to continue to cope with anxiety. Overall, I spent a total of 35 minutes with this case including review of chart records, nursing report, review of lab work, direct evaluation of the patient at bedside, counseling the patient, discussion of the patient with the hospitalist provider, discussion with the psychiatric liason during clinical rounds and documentation in the electronic health record. (1) At risk for self harm: (2) Schizoaffective disorder: (3) Cluster B personality disorder: Plan Would recommended continued 1:1 observation given self harm concerns. Current psychiatric medications reviewed and appropriate/ could consider inc in trazodone to 150mg HS for sleep complaints. Plan to return to [facility] psychiatric facility once medically cleared. Psych History Identifying Data 18 y/o F h/o MAICO LOZANO who presents as a voluntary patient from [facility] for severe UTI requiring IV Abx. Psychiatry consulted for evaluation. Chief Complaint "hearing voices". History of Present Illness Med hx reviewed. From liasion note "continues to endorse SI which is chronic for her - she states "I don't want to be in this world. I want to be with my grandmother and brother" - denies HI, endorses chronic auditory and visual hallucinations of voices telling her to hurt herself and people standing in her peripheral vision - she states these are always present but prior to admission to the [facility] were worse than usual due to stress, patient lives with her Mom in [place] and consented to [facility] for her in the case that she needs contacted, patient would like medical team to return her to the [facility] once medically stable, requesting a few med changes from psychiatrist, denies other needs at this time." Pt reports feeling "so-so". C/o being surrounded and hearing voices of people she doesn't know telling her to hurt herself. Also c/o visual hallucinations that scare her. Feels "somewhat" safe in the hospital. C/o passive SI. Reports recent superficial cut to arm. Reports "liking the pain" and provides relief. Reports trouble falling asleep at night. Mood has been the same. Future oriented wondering whether will she return to [facility] and wants her mother informed. Allergies Allergy/AdvReac Type Severity Reaction Status Date / Time No Known Allergies Allergy Verified 10/03/23 00:53 Home Medications Medication Instructions Recorded Confirmed Type polyethylene glycol 3350 17 17 g PO DAILY #510 grams 10/03/23 10/06/23 Rx gram/dose oral powder (Miralax) albuterol sulfate 90 mcg/actuation 2 puff inhalation QID PRN 10/06/23 10/06/23 History aerosol inhaler (Ventolin HFA) Shortness Of Breath Or Wheezing aripiprazole 20 mg tablet 20 mg PO HS 10/06/23 10/06/23 History clotrimazole 2 % vaginal cream 1 appful vaginal HS 10/06/23 10/06/23 History (Gyne-Lotrimin) famotidine 20 mg tablet 20 mg PO BID 10/06/23 10/06/23 History ferrous sulfate 325 mg (65 mg 325 mg PO DAILY 10/06/23 10/06/23 History iron) tablet fluticasone 100 mcg-salmeterol 50 1 inh inhalation BID 10/06/23 10/06/23 History mcg/dose blistr powdr for inhalation haloperidol 10 mg tablet 10 mg PO Q8H PRN aggression 10/06/23 10/06/23 History hydroxyzine HCl 50 mg tablet 50 mg PO BID PRN Anxiety 10/06/23 10/06/23 History lamotrigine 300 mg tablet,extended 300 mg PO DAILY 10/06/23 10/06/23 History release 24 hr lorazepam 1 mg tablet 1 mg PO Q8H PRN Anxiety 10/06/23 10/06/23 History metformin 500 mg tablet 500 mg PO BIDWMEAL 10/06/23 10/06/23 History nitrofurantoin 100 mg capsule 100 mg PO BID 10/06/23 10/06/23 History oxcarbazepine 150 mg tablet 450 mg PO BID 10/06/23 10/06/23 History (Trileptal) pantoprazole 40 mg tablet,delayed 40 mg PO DAILY 10/06/23 10/06/23 History release pregabalin 75 mg capsule 75 mg PO BID 10/06/23 10/06/23 History sennosides 8.6 mg capsule (senna) 8.6 mg PO DAILY PRN Constipation 10/06/23 10/06/23 History sertraline 100 mg tablet 200 mg PO HS 10/06/23 10/06/23 History trazodone 100 mg tablet 100 mg PO HS 10/06/23 10/06/23 History Patient History Medical History (Updated 10/07/23 @ 21:57 by Guicho Saez MD) Pyelonephritis Constipation Surgical History (Updated 10/06/23 @ 19:08 by Isabell Leal PA-C) Hx of tonsillectomy Social History Smoking Status: Former smoker Tobacco Type: E-cigarettes / Vaping Second Hand Exposure: No; Do You Dip or Chew Tobacco: No; Tobacco Cessation Education Requested by Patient: No Hx Alcohol Use: Yes Alcohol type: hard liquor Hx Substance Use: Yes Last Used Substance Other:: 2022 Preferred Language: Malaysian Communication Ability: Effective Cover Cutter Required: No Beliefs That Will Affect Care: None Current Living Situation: Parent Other Information That Helps Us Care for You: No Feels Safe at Home: Yes Assistive Devices: None Physical Exam Mental Examination: Appearance: Disheveled Eye Contact: Diverts Contact Motor Behavior: Restless Speech: Soft Mood: Euthymic Affect: Congruent Thought Process: Intact and Linear Hallucinations: Auditory and Visual Insight: Poor Judgement: Poor Vital Signs (Past 24 Hours): Last Vital Signs Temp 36.5 C 10/07/23 07:19 Pulse 75 10/07/23 07:19 Resp 18 10/07/23 07:19 BP 107/72 10/07/23 07:19 Pulse Ox 96 10/07/23 07:19 O2 Del Method Room Air 10/07/23 09:25 Results & Data (PSY) Medications Administered Acetaminophen (Acetaminophen 325 Mg Tab) 650 mg PO Q4H PRN PRN Reason: pain/fever Stop: 11/05/23 16:33 Last Admin: 10/07/23 03:29 Dose: 650 mg Documented By: Admin: 10/06/23 21:10 Dose: 650 mg Documented By: SAMARAK Aripiprazole (Aripiprazole 10 Mg Tab) 20 mg PO HS IRON Stop: 11/05/23 20:59 Last Admin: 10/06/23 21:00 Dose: 20 mg Documented By: JASMIN Clotrimazole (Clotrimazole Vaginal Cr 7 Appln/45 Gm Tube) 1 appln PV HS IRON Stop: 10/08/23 21:01 Last Admin: 10/06/23 20:59 Dose: 1 appln Documented By: JASMIN Enoxaparin Sodium (Enoxaparin Inj 40 Mg/0.4 Ml Syr) 40 mg SQ BID IRON Stop: 11/05/23 20:59 Last Admin: 10/07/23 10:48 Dose: 40 mg Documented By: Admin: 10/06/23 22:09 Dose: 40 mg Documented By: JASMIN Famotidine (Famotidine 20 Mg Tab) 20 mg PO BID [facility] Stop: 11/05/23 20:59 Last Admin: 10/07/23 09:08 Dose: 20 mg Documented By: Admin: 10/06/23 20:59 Dose: 20 mg Documented By: JASMIN Ferrous Sulfate (Ferrous Sulfate 325 Mg Tab) 325 mg PO DAILY [facility] Stop: 11/06/23 08:59 Last Admin: 10/07/23 09:09 Dose: 325 mg Documented By: BILLY Fluticasone/Vilanterol (Fluticasone/Vilanterol 100/25mcg 14 Puffs/Inhaler) 1 puffs INH DAILY [facility] Stop: 11/06/23 08:59 Last Admin: 10/07/23 09:09 Dose: 1 puffs Documented By: BILLY Lorazepam (Lorazepam 1 Mg Tab) 1 mg PO Q8H PRN PRN Reason: Anxiety Stop: 11/05/23 16:35 Last Admin: 10/07/23 13:07 Dose: 1 mg Documented By: Admin: 10/06/23 22:09 Dose: 1 mg Documented By: JASMIN Metformin HCl (Metformin Hcl 500 Mg Tab) 500 mg PO BID IRON Stop: 11/05/23 20:59 Last Admin: 10/07/23 09:09 Dose: 500 mg Documented By: Admin: 10/06/23 21:01 Dose: 500 mg Documented By: JASMIN Miscellaneous (Lamotrigine 300 Mg Tablet Extended Release ~ Order Awaiting Action) 1 each N/A QS [facility] Stop: 11/06/23 00:00 Last Admin: 10/07/23 08:26 Dose: Not Given Documented By: Admin: 10/06/23 23:30 Dose: Not Given Documented By: KING Oxcarbazepine (Oxcarbazepine 150 Mg Tablet) 450 mg PO BID IRON Stop: 11/05/23 20:59 Last Admin: 10/07/23 09:09 Dose: 450 mg Documented By: Admin: 10/06/23 21:00 Dose: 450 mg Documented By: JASMIN Pantoprazole Sodium (Pantoprazole 40 Mg Tab) 40 mg PO DAILY IRON Stop: 11/06/23 08:59 Last Admin: 10/07/23 09:10 Dose: 40 mg Documented By: BILLY Polyethylene Glycol (Polyethylene (Miralax) 17 Gm Pack) 17 gm PO DAILY IRON Stop: 11/06/23 08:59 Last Admin: 10/07/23 09:10 Dose: 17 gm Documented By: BILLY Pregabalin (Pregabalin 75 Mg Cap) 75 mg PO BID IRON Stop: 11/05/23 20:59 Last Admin: 10/07/23 09:08 Dose: 75 mg Documented By: Admin: 10/06/23 20:59 Dose: 75 mg Documented By: JASMIN Sertraline HCl (Sertraline Hcl 100 Mg Tablet) 200 mg PO HS [facility] Stop: 11/05/23 20:59 Last Admin: 10/06/23 21:00 Dose: 200 mg Documented By: JASMIN Trazodone HCl (Trazodone Hcl 100 Mg Tab) 100 mg PO [facility] Stop: 11/05/23 20:59 Last Admin: 10/06/23 21:00 Dose: 100 mg Documented By: JASMIN [place] [address] IN/OBS CONSULT LVL 2,35M Patient Type New History Problem Focused Exam Problem Focused Medical Decision Making Low Complexity Diagnoses At risk for self harm R45.89 Schizoaffective disorder F25.9 Cluster B personality disorder F60.89
[2023-10-07] MEDS: ERTAPENEM SODIUM 1,000 MG in SYRINGE 0 ML IV SCH (15:13)
[2023-10-07] MEDS: KETOROLAC TROMETHAMINE 15 MG/ML VIAL IV PRN (15:53)
--- NOTE | 2023-10-07 16:34 | Hospitalist Progress Note ---
Date of Service October 07, 2023 Assessment & Plan (1) UTI due to extended-spectrum beta lactamase (ESBL) producing Escherichia coli: (2) Recurrent UTI: Plan: Patient is 18 year old female with PMH recurrent UTI, pyelonephritis, depression, anxiety, bipolar, schizoaffective disorder, seizure disorder, asthma, migraine headache, iron deficiency anemia, PCOS, obesity presented to ER for abnormal urine culture. Urinary symptoms and abdominal and bilateral back p ain since 09/16/23. Tried on multiple outpatient antibiotics. 10/01/[address] abdomen pelvis and was started on Cipro for UTI 10/01/23 urine culture +ESBL e coli. 10/05/23 was recommended to discontinue cipro and start macrobid however pt with continued symptoms In ER afebrile, vitals stable. No leukocytosis In ER given ertapenem Will continue ertapenem CBC, BMP in am 10/06 Repeat urine culture: Pending Blood culture: Pending CT abdomen and pelvis without contrast: No fluid collections, stones Continue IV meropenem ID consult (3) Suicidal ideation: (4) Schizoaffective disorder: (5) Depression with anxiety: Plan: Currently at [facility] as voluntary admission for suicidal ideation and reported cutting and auditory hallucinations. Currently "feel better if I was just " but denies any active plan Will continue current medications that has been on from [place] [facility] to one observation Suicide precautions Mental health consult 10/06 Patient's mother inquiring if IV Abilify can be administered to the patient, they have the medication Patient's mother also states [place] has cleared the patient for discharge, (6) Asthma: Plan: No signs acute exacerbation Continue home inhalers (7) GERD (gastroesophageal reflux disease): Plan: Continue PPI, famotidine (8) Seizure disorder: Plan: Last reported seizure 01/2023 Continue home Lamictal (9) Iron deficiency anemia: Plan: H&H stable Continue ferrous sulfate DVT Prophylaxis- sc lovenox, Ambulate Admit med surg pending Admission and Anticipated Discharge Date Admission Date: October 06, 2023 Subjective Follow-up for ESBL E. coli, etc. Seen with KAZ Arora at the bedside throughout encounter Patient seen resting in bed, sitting up, calm, cooperative, pleasant, not in distress States she feels about the same as yesterday Still having bilateral flank discomfort Also having suprapubic discomfort Some dysuria Subjective feeling of cold Appetite is okay No new symptoms Review of Systems Review of Systems: all noted and negative except for above Physical Exam Physical Exam: General- oriented x 3, not in distress, speaks in sentences with no effort or accessory muscle use Head- atraumatic Eyes- PERRL, EOMI, anicteric ENT- oropharynx clear Neck- supple, no JVD, no adenopathy, no thyromegaly; carotids +2/2, no bruits appreciated Lungs- clear to auscultation bilaterally, no rales/wheezes Heart- normal rate, regular rhythm; no murmur, no gallop, no rub appreciated Abdomen- normal bowel sounds, nondistended, soft, nontender, no masses or hepatosplenomegaly Positive mild CVA tenderness Extremities- no pretibial edema, no calf tenderness; peripheral pulses intact Neuro- alert, oriented x 3; CN 2-12 grossly intact; motor 5/5 bilaterally;sensation 100% on all extremities; no other gross focal neurologic deficits Skin- warm & dry Results & Data Results & Data Vital Signs (Past 12 Hours) Vital Signs Temp Pulse Resp BP Pulse Ox O2 Del Method 10/07/23 15:29 Room Air 10/07/23 15:28 36.6 C 98 H 18 101/70 95 Room Air 10/07/23 09:25 Room Air 10/07/23 07:19 36.5 C 75 18 107/72 96 Room Air all noted and reviewed including below
[2023-10-07] MEDS: HYDROmorphone INJ 0.5 MG/0.5 ML SYR IV STA (23:20)
[2023-10-08] MEDS: haloperidoL 5 MG TAB PO PRN (06:22)
[2023-10-08] MEDS: ADVANCED PROBIOTIC 625 MG CAPSULE PO SCH (09:29)
--- NOTE | 2023-10-08 11:57 | Psychiatric Progress Note ---
Date of Service October 08, 2023 Impression / Recommendations Impression 18 y/o F h/o MAICO LOZANO who presents as a voluntary patient from [facility] for severe UTI requiring IV Abx. Psychiatry consulted for evaluation. She presents a history of AVH and Cluster B symptoms which appear to be chronic and no recent worsening. Her thoughts are organized. She presents no self harm concerns today. She is future oriented and presents a safe discharge plan to be with her mother. Overall, I spent a total of 20 minutes with this case including review of chart records, nursing report, gathering collateral discussion of the patient with the hospitalist provider, discussion with the psychiatric liason during clinical rounds and documentation in the electronic health record. (1) Schizoaffective disorder: (2) Cluster B personality disorder: Plan Inpatient psychiatric hospitalization not currently indicated and patient may return home with mother. Confirmed Abilify Maintena dosing schedule. As patient missed scheduled CASTRO dose, plan to administer Abilify Maintena 400mg IM today and continue [id number]. Continue oral overlap of Abilify 20mg HS for 2 weeks then discontinue. Suicide Risk Level Suicide Risk Level: Low (q15 min observation checks) Interval History Identifying Information 18 y/o F h/o MAICO LOZANO who presents as a voluntary patient from [facility] for severe UTI requiring IV Abx. Psychiatry consulted for evaluation. Chief Complaint AVH Subjective Subjective Spoke to mother: pt is on Abilify Maintena 400mg [id number], last given on 08/19/23 and missed 09/19/23 dose. Behaviors stable. Physical Exam Mental Examination Appearance: Disheveled Eye Contact: Diverts Contact Motor Behavior: Restless Speech: Soft Mood: Euthymic Affect: Congruent Thought Process: Intact and Linear Hallucinations: Auditory and Visual Insight: Poor (improved) Judgement: Poor Vital Signs (Past 24 Hours) Last Vital Signs Temp 36.5 C 10/08/23 07:05 Pulse 78 10/08/23 07:05 Resp 18 10/08/23 07:05 BP 90/58 L 10/08/23 07:05 Pulse Ox 98 10/08/23 07:05 O2 Del Method Room Air 10/08/23 07:05 Results & Data ([facility]) Current Inpatient Medications Current Inpatient Medications: Current Inpatient Medications Acetaminophen (Acetaminophen 325 Mg Tab) 650 mg PO Q4H PRN PRN Reason: pain/fever Stop: 11/05/23 16:33 Last Admin: 10/08/23 08:43 Dose: 650 mg Albuterol (Albuterol Hfa 8 Gm Inhaler) 2 puffs INH QID PRN PRN Reason: Shortness Of Breath Or Wheezin Stop: 11/05/23 16:35 Aripiprazole (Aripiprazole 10 Mg Tab) 20 mg PO HS IRON Stop: 11/05/23 20:59 Last Admin: 10/07/23 20:23 Dose: 20 mg Clotrimazole (Clotrimazole Vaginal Cr 7 Appln/45 Gm Tube) 1 appln PV HS IRON Stop: 10/08/23 21:01 Last Admin: 10/07/23 20:25 Dose: 1 appln Enoxaparin Sodium (Enoxaparin Inj 40 Mg/0.4 Ml Syr) 40 mg SQ BID IRON Stop: 11/05/23 20:59 Last Admin: 10/08/23 08:55 Dose: 40 mg Famotidine (Famotidine 20 Mg Tab) 20 mg PO BID IRON Stop: 11/05/23 20:59 Last Admin: 10/08/23 08:56 Dose: 20 mg Ferrous Sulfate (Ferrous Sulfate 325 Mg Tab) 325 mg PO DAILY IRON Stop: 11/06/23 08:59 Last Admin: 10/08/23 08:56 Dose: 325 mg Fluticasone/Vilanterol (Fluticasone/Vilanterol 100/25mcg 14 Puffs/Inhaler) 1 puffs INH DAILY IRON Stop: 11/06/23 08:59 Last Admin: 10/08/23 08:44 Dose: 1 puffs Haloperidol (Haloperidol 5 Mg Tab) 10 mg PO Q8H PRN PRN Reason: aggression Stop: 11/05/23 16:35 Last Admin: 10/08/23 06:22 Dose: 10 mg Ertapenem 1,000 mg/ Syringe 10 mls @ 2 mls/min IV Q24H IRON Stop: 10/17/23 13:59 Last Admin: 10/07/23 15:13 Dose: 2 mls/min Ketorolac Tromethamine (Ketorolac Tromethamine 15 Mg/Ml Vial) 15 mg IV Q6H PRN PRN Reason: Pain Stop: 10/12/23 15:37 Last Admin: 10/08/23 06:18 Dose: 15 mg Lactobacillus Acidophilus (Advanced Probiotic 625 Mg Capsule) 1,250 mg PO DAILY IRON Stop: 11/07/23 08:59 Last Admin: 10/08/23 09:29 Dose: 1,250 mg Lorazepam (Lorazepam 1 Mg Tab) 1 mg PO Q8H PRN PRN Reason: Anxiety Stop: 11/05/23 16:35 Last Admin: 10/08/23 00:38 Dose: 1 mg Metformin HCl (Metformin Hcl 500 Mg Tab) 500 mg PO BID IRON Stop: 11/05/23 20:59 Last Admin: 10/08/23 08:56 Dose: 500 mg Miscellaneous (Lamotrigine 300 Mg Tablet Extended Release ~ Order Awaiting Action) 1 each N/A QS IRON Stop: 11/06/23 00:00 Last Admin: 10/08/23 08:31 Dose: Not Given Oxcarbazepine (Oxcarbazepine 150 Mg Tablet) 450 mg PO BID IRON Stop: 11/05/23 20:59 Last Admin: 10/08/23 08:56 Dose: 450 mg Pantoprazole Sodium (Pantoprazole 40 Mg Tab) 40 mg PO DAILY IRON Stop: 11/06/23 08:59 Last Admin: 10/08/23 08:56 Dose: 40 mg Polyethylene Glycol (Polyethylene (Miralax) 17 Gm Pack) 17 gm PO DAILY IRON Stop: 11/06/23 08:59 Last Admin: 10/08/23 08:44 Dose: Not Given Pregabalin (Pregabalin 75 Mg Cap) 75 mg PO BID IRON Stop: 11/05/23 20:59 Last Admin: 10/08/23 08:56 Dose: 75 mg Sertraline HCl (Sertraline Hcl 100 Mg Tablet) 200 mg PO HS IRON Stop: 11/05/23 20:59 Last Admin: 10/07/23 20:23 Dose: 200 mg Trazodone HCl (Trazodone Hcl 100 Mg Tab) 100 mg PO [facility] Stop: 11/05/23 20:59 Last Admin: 10/07/23 20:23 Dose: 100 mg
[2023-10-08] MEDS: ARIPiprazole 400 MG PRE-FILLED SYRINGE IM ONE (13:10)
--- NOTE | 2023-10-08 15:24 | Hospitalist Progress Note ---
Date of Service October 08, 2023 Assessment & Plan (1) UTI due to extended-spectrum beta lactamase (ESBL) producing Escherichia coli: (2) Recurrent UTI: Plan: Patient is 18 year old female with PMH recurrent UTI, pyelonephritis, depression, anxiety, bipolar, schizoaffective disorder, seizure disorder, asthma, migraine headache, iron deficiency anemia, PCOS, obesity presented to ER for abnormal urine culture. Urinary symptoms and abdominal and bilateral back p ain since 09/16/23. Tried on multiple outpatient antibiotics. 10/01/[address] abdomen pelvis and was started on Cipro for UTI 10/01/23 urine culture +ESBL e coli. 10/05/23 was recommended to discontinue cipro and start macrobid however pt with continued symptoms In ER afebrile, vitals stable. No leukocytosis In ER given ertapenem Will continue ertapenem CBC, BMP in am 10/06 Repeat urine culture: Pending Blood culture: Pending CT abdomen and pelvis without contrast: No fluid collections, stones Continue IV meropenem ID consult (3) Suicidal ideation: (4) Schizoaffective disorder: (5) Depression with anxiety: Plan: Currently at [facility] as voluntary admission for suicidal ideation and reported cutting and auditory hallucinations. Currently "feel better if I was just " but denies any active plan Will continue current medications that has been on from [place] [facility] to one observation Suicide precautions Mental health consult 10/06 Patient's mother inquiring if IV Abilify can be administered to the patient, they have the medication Patient's mother also states [place] has cleared the patient for discharge 10/07 Discussed with psychiatry service Dr. Sri Stanley with receiving IM Abilify while admitted Also cleared for discharge to home when medically stable (6) Asthma: Plan: No signs acute exacerbation Continue home inhalers (7) GERD (gastroesophageal reflux disease): Plan: Continue PPI, famotidine (8) Seizure disorder: Plan: Last reported seizure 01/2023 Continue home Lamictal (9) Iron deficiency anemia: Plan: H&H stable Continue ferrous sulfate DVT Prophylaxis- sc lovenox, Ambulate Admit med surg Awaiting final ID recommendations but will likely need IV antibiotic upon discharge to home Admission and Anticipated Discharge Date Admission Date: October 06, 2023 Subjective Follow-up for ESBL E. coli UTI, etc. Seen comfortable, not in distress States she okay overall Still having some bilateral flank pain, bladder pain Has some dysuria Denies fevers or chills, shortness of breath, chest pain, palpitations, nausea vomiting Mood is okay Review of Systems Review of Systems: all noted and negative except for above Physical Exam Physical Exam: General- oriented x 3, not in distress, speaks in sentences with no effort or accessory muscle use Eyes- anicteric Neck- no JVD Lungs- clear breath sounds bilaterally, no rales/wheezes Heart- normal rate, regular rhythm; no murmurs Abdomen- normal bowel sounds, nondistended, soft, nontender Extremities- no pretibial edema, no calf tenderness Neuro- alert, oriented x 3; no gross focal neurologic deficits Skin- warm & dry Results & Data Results & Data Vital Signs (Past 12 Hours) Vital Signs Temp Pulse Resp BP Pulse Ox O2 Del Method 10/08/23 15:14 36.7 C 85 108/70 94 Room Air 10/08/23 07:05 36.5 C 78 18 90/58 L 98 Room Air all noted and reviewed including below
[2023-10-08] MEDS: IBUPROFEN 200 MG TAB PO STA (22:08)
[2023-10-09] MEDS: PHENAZOPYRIDINE HCL 100 MG TAB PO PRN (13:23)
[2023-10-09] MEDS ORDERED: LORazepam 0.5 MG in SYRINGE 0.25 ML IV PRN (15:50)
--- NOTE | 2023-10-09 16:20 | Neurology Consultation ---
Date of Consultation October 09, 2023 Assessment & Plan (1) Seizure disorder: It is difficult to know the nature of her seizures as her only EEG was reportedly normal, but this doesn't exclude epilepsy. On exam she has some behavioral changes but nothing consistent with seizure during my evaluation. Eventually she will need an admission to an epilepsy center for LTM EEG monitoring to make a final diagnosis of epilepsy but this is an elective admission. I agree that the Lamictal and Trileptal aren't a great combination, due to the cardiac risks of 2 Na channel blockers; additionally Trileptal doesn't protect well again generalized epilepsy syndromes and given her unknown seizure type i would avoid it. Plan -- would restart Lamictal 150 mg BID -- would stop the trileptal -- routine EEG when able -- ok to hold on neuro imaging -- ativan for generalized seizure activity lasting > 30s (convulsions) Telehealth Consultation Telehealth Information Telehealth Information: I performed this visit using a real-time telehealth connection between my location and the patients location ([facility]). After connecting through interactive tele-video, patient was identified by name and date of and/or wristband check.Patient (or authorized healthcare shipping services sales representative) was informed that this was a telemedicine visit and it was being conducted confidentially over secure lines. My office door was closed and no one else was present in the room with me.Patient (or authorized healthcare shipping services sales representative) provided consent to proceed with the visit, expressed an understanding of privacy and security of the telemedicine visit, and gave permission to have a hospital shipping services sales representative in the room in order to assist with the visit and to conduct portions of the visit, as needed. I informed the patient (or authorized healthcare shipping services sales representative) that I reviewed their record and presented the opportunity for them to ask any questions regarding the visit today. The patient agreed to participate. History of Present Illness Reason for Consultation: Breakthrough seizure Requesting Physician: Dr Scott Attending Physician: J Luis Morales MD History of Present Illness Zulema is a 18F with a PMH of suicidal ideation, seizure disorder, depression/anxiety and schizoaffective disorder who is currently admitted for treatment of a UTI and felt like she was going to have a seizure. she reports that her normal seizures are infrequent and the last one was in March. She normally has generalized convulsive events and has never been in status epilepticus. She does follow with a neurologist in [place] and had a routine EEG which was normal. They did start Lamictal at that time, but only 300 mg Daily. She has a father with epilepsy and says both of her half/siblings have seizures also. Prior to admission she was in a facility and was being cross-titrated from Lamictal to Trileptal for better mood control. She endorses abdominal pain, dysuria and increased urinary frequency Allergies Allergy/AdvReac Type Severity Reaction Status Date / Time No Known Allergies Allergy Verified 10/03/23 00:53 Home Medications Medication Instructions Recorded Confirmed Type polyethylene glycol 3350 17 17 g PO DAILY #510 grams 10/03/23 10/06/23 Rx gram/dose oral powder (Miralax) albuterol sulfate 90 mcg/actuation 2 puff inhalation QID PRN 10/06/23 10/06/23 History aerosol inhaler (Ventolin HFA) Shortness Of Breath Or Wheezing aripiprazole 20 mg tablet 20 mg PO HS 10/06/23 10/06/23 History clotrimazole 2 % vaginal cream 1 appful vaginal HS 10/06/23 10/06/23 History (Gyne-Lotrimin) famotidine 20 mg tablet 20 mg PO BID 10/06/23 10/06/23 History ferrous sulfate 325 mg (65 mg 325 mg PO DAILY 10/06/23 10/06/23 History iron) tablet fluticasone 100 mcg-salmeterol 50 1 inh inhalation BID 10/06/23 10/06/23 History mcg/dose blistr powdr for inhalation haloperidol 10 mg tablet 10 mg PO Q8H PRN aggression 10/06/23 10/06/23 History hydroxyzine HCl 50 mg tablet 50 mg PO BID PRN Anxiety 10/06/23 10/06/23 History lamotrigine 300 mg tablet,extended 300 mg PO DAILY 10/06/23 10/06/23 History release 24 hr lorazepam 1 mg tablet 1 mg PO Q8H PRN Anxiety 10/06/23 10/06/23 History metformin 500 mg tablet 500 mg PO BIDWMEAL 10/06/23 10/06/23 History nitrofurantoin 100 mg capsule 100 mg PO BID 10/06/23 10/06/23 History oxcarbazepine 150 mg tablet 450 mg PO BID 10/06/23 10/06/23 History (Trileptal) pantoprazole 40 mg tablet,delayed 40 mg PO DAILY 10/06/23 10/06/23 History release pregabalin 75 mg capsule 75 mg PO BID 10/06/23 10/06/23 History sennosides 8.6 mg capsule (senna) 8.6 mg PO DAILY PRN Constipation 10/06/23 10/06/23 History sertraline 100 mg tablet 200 mg PO HS 10/06/23 10/06/23 History trazodone 100 mg tablet 100 mg PO HS 10/06/23 10/06/23 History Patient History Medical History (Updated 10/07/23 @ 21:57 by Guicho Saez MD) Pyelonephritis Constipation Surgical History (Updated 10/06/23 @ 19:08 by Isabell Leal PA-C) Hx of tonsillectomy Social History Smoking Status: Former smoker Tobacco Type: E-cigarettes / Vaping Second Hand Exposure: No; Do You Dip or Chew Tobacco: No; Tobacco Cessation Education Requested by Patient: No Hx Alcohol Use: Yes Alcohol type: hard liquor Hx Substance Use: Yes Last Used Substance Other:: 2022 Preferred Language: Albanian Communication Ability: Effective Communication Tools: Other Emergency Room Clerk Required: No Beliefs That Will Affect Care: None Current Living Situation: Parent Other Information That Helps Us Care for You: No Feels Safe at Home: Yes Assistive Devices: None Review of Systems see HPI Physical Exam NEUROLOGIC EXAMINATION: Mental Status:alert, oriented to time, place, person, normal recent memory, normal remote memory, normal attention span, normal concentration, normal language, and normal fund of knowledge Cranial Nerves: CN 2 - no visual defect on confrontation and pupils round, equal, reactive to light CN 3, 4, 6 - extra-ocular movements intact and no nystagmus CN 7 - no facial asymmetry CN 8 - intact hearing CN 11 - good shoulder shrug MOTOR: Strength was at least antigravity throughout, Pronator drift was absent, and There were no abnormal movements SENSATION: intact COORDINATION: no dysmetria REFLEXES: cannot assess over telemedicine Results & Data Vital Signs (Past 12 Hours) Vital Signs Temp Pulse Resp BP Pulse Ox O2 Del Method 10/09/23 15:44 36.7 C 64 16 104/66 96 Room Air 10/09/23 15:11 36.8 C 72 18 102/57 L 97 Room Air 10/09/23 14:24 37.0 C 78 17 134/75 97 Room Air 10/09/23 06:58 36.4 C L 65 18 116/69 98 Room Air
[2023-10-09] MEDS: SODIUM CHLORIDE 0.9% 500 ML IV STA (16:57)
--- NOTE | 2023-10-09 16:59 | Hospitalist Progress Note ---
Date of Service October 09, 2023 Assessment & Plan (1) UTI due to extended-spectrum beta lactamase (ESBL) producing Escherichia coli: (2) Recurrent UTI: Plan: Patient is 18 year old female with PMH recurrent UTI, pyelonephritis, depression, anxiety, bipolar, schizoaffective disorder, seizure disorder, asthma, migraine headache, iron deficiency anemia, PCOS, obesity presented to ER for abnormal urine culture. Urinary symptoms and abdominal and bilateral back pain since 09/16/23. Tried on multiple outpatient antibiotics. 10/01/[address] abdomen pelvis and was started on Cipro for UTI 10/01/23 urine culture +ESBL e coli. 10/05/23 was recommended to discontinue cipro and start macrobid however pt with continued symptoms In ER afebrile, vitals stable. No leukocytosis In ER given ertapenem Will continue ertapenem CBC, BMP in am 10/06 Repeat urine culture: Negative Blood culture: Negative CT abdomen and pelvis without contrast: No fluid collections, stones Continue IV meropenem ID consult 10/08 ID recommendations noted Continue ertapenem IV Day 4 5-7 days per ID Macrobid p.o. stepdown upon discharge (3) Suicidal ideation: (4) Schizoaffective disorder: (5) Depression with anxiety: Plan: Currently at [facility] as voluntary admission for suicidal ideation and reported cutting and auditory hallucinations. Currently "feel better if I was just " but denies any active plan Will continue current medications that has been on from [place] [facility] to one observation Suicide precautions Mental health consult 10/06 Patient's mother inquiring if IV Abilify can be administered to the patient, they have the medication Patient's mother also states [place] has cleared the patient for discharge 10/07 Discussed with psychiatry service Dr. Sri Stanley with receiving IM Abilify while admitted Also cleared for discharge to home when medically stable 10/08 Trileptal discontinued, changed to Lamictal Psychiatry service updated, requested reevaluation patient today (6) Asthma: Plan: No signs acute exacerbation Continue home inhalers (7) GERD (gastroesophageal reflux disease): Plan: Continue PPI, famotidine (8) Seizure disorder: Plan: Last reported seizure 01/2023 Continue home Lamictal 10/08 Patient reported patient moving up, something crawling on her legs Possible breakthrough seizure Neurologist consulted Recommend to discontinue Trileptal that was started for Lance, and resume usual Lamictal, change dosing from 300 mg daily to 150 mg twice daily Monitor closely (9) Iron deficiency anemia: Plan: H&H stable Continue ferrous sulfate DVT Prophylaxis- sc lovenox, Ambulate Admission and Anticipated Discharge Date Admission Date: October 06, 2023 Subjective Follow-up for E. coli ESBL UTI, etc. Seen resting in bed with KAZ Mathias at the bedside throughout whole encounter Patient states that she feels 'so-so' Still having some bilateral leg pain and dysuria Also reports pelvic pain, vaginal discharge Mood is ok Notified by RN in the afternoon, patient reports that she does not feel right, that her eyes are moving fast, going upward Neurologist consulted for possible breakthrough seizures Telemedicine consult performed, recommend to discontinue Trileptal, resume Lamictal but split usual dose from 300 mg p.o. daily to 100 mg p.o. twice daily Review of Systems Review of Systems: all noted and negative except for above Physical Exam Physical Exam: General- oriented x 3, not in distress, speaks in sentences with no effort or accessory muscle use Eyes- anicteric Neck- no JVD Lungs- clear breath sounds bilaterally, no rales/wheezes Heart- normal rate, regular rhythm; no murmurs Abdomen- normal bowel sounds, nondistended, soft, nontender mild CVA tenderness Extremities- no pretibial edema, no calf tenderness Neuro- alert, oriented x 3; no gross focal neurologic deficits Skin- warm & dry Results & Data Results & Data Vital Signs (Past 12 Hours) Vital Signs Temp Pulse Resp BP Pulse Ox O2 Del Method 10/09/23 15:44 36.7 C 64 16 104/66 96 Room Air 10/09/23 15:11 36.8 C 72 18 102/57 L 97 Room Air 10/09/23 14:24 37.0 C 78 17 134/75 97 Room Air 10/09/23 06:58 36.4 C L 65 18 116/69 98 Room Air all noted and reviewed including below
--- NOTE | 2023-10-09 17:24 | Infectious Disease Consult ---
Date of Service October 09, 2023 Telehealth Information I performed this visit using a real-time telehealth connection between my location and the patients location ([facility]). After connecting through interactive tele-video, patient was identified by name and date of and/or wristband check.Patient (or authorized healthcare senior customer service representative) was informed that this was a telemedicine visit and it was being conducted confidentially over secure lines. My office door was closed and no one else was present in the room with me.Patient (or authorized healthcare senior customer service representative) provided consent to proceed with the visit, expressed an understanding of privacy and security of the telemedicine visit, and gave permission to have a hospital senior customer service representative in the room in order to assist with the visit and to conduct portions of the visit, as needed. I informed the patient (or authorized healthcare senior customer service representative) that I reviewed their record and presented the opportunity for them to ask any questions regarding the visit today. The patient agreed to participate. Assessment & Plan (1) UTI due to extended-spectrum beta lactamase (ESBL) producing Escherichia coli: (2) Obesity: (3) Schizoaffective disorder: Plan I agree with the primary team on IV ertapenem 1 g daily. I would recommend treating as simple cystitis for a total duration of 5 days. However, if the patient continued to have symptoms on day 5, consider extending for a total of 7 days. I would consider using Macrobid 100 mg BID for step down oral therapy on discharge. Thank you for consulting Infectious Disease. We will sign off for now. History of Present Illness History of Present Illness Ms. Garcia is a 18-year-old young lady with medical history of major depressive disorder, anxiety, schizoaffective disorder, asthma, seizure disorder, obesity, polycystic ovarian syndrome, and recurrent UTIs who was admitted to [facility] on 10/05 because of abnormal urine culture. Per patient report, she has been having dysuria and urinary frequency with bilateral flank and lower abdominal pain since 09/16/2023. She is currently residing at a psychiatric facility for the last 3 weeks for suicidal ideations and auditory hallucinations. She was diagnosed for UTI at her facility and was treated with Bactrim as well as Augmentin without any improvement in her symptoms. She presented to the emergency department on 09/30 with similar symptoms and was prescribed Cipro for UTI. She presented again on 10/02 because of urinary retention requiring straight cathing. Cultures from 09/30 grew ESBL E coli and thus , on 10/04, she was asked to stop Cipro and start on Macrobid instead. However, her symptoms persisted which urged her to come to the emergency department. On presentation, her vitals were within normal limits. UA showed 6-10 WBCs with no bacteriuria. CT abdomen pelvis performed on 10/06 was not impressive. Id team was consulted for further recommendations and to help guide antibiotic treatment. Allergies Allergy/AdvReac Type Severity Reaction Status Date / Time No Known Allergies Allergy Verified 10/03/23 00:53 Home Medications Medication Instructions Recorded Confirmed Type polyethylene glycol 3350 17 17 g PO DAILY #510 grams 10/03/23 10/06/23 Rx gram/dose oral powder (Miralax) albuterol sulfate 90 mcg/actuation 2 puff inhalation QID PRN 10/06/23 10/06/23 History aerosol inhaler (Ventolin HFA) Shortness Of Breath Or Wheezing aripiprazole 20 mg tablet 20 mg PO HS 10/06/23 10/06/23 History clotrimazole 2 % vaginal cream 1 appful vaginal HS 10/06/23 10/06/23 History (Gyne-Lotrimin) famotidine 20 mg tablet 20 mg PO BID 10/06/23 10/06/23 History ferrous sulfate 325 mg (65 mg 325 mg PO DAILY 10/06/23 10/06/23 History iron) tablet fluticasone 100 mcg-salmeterol 50 1 inh inhalation BID 10/06/23 10/06/23 History mcg/dose blistr powdr for inhalation haloperidol 10 mg tablet 10 mg PO Q8H PRN aggression 10/06/23 10/06/23 History hydroxyzine HCl 50 mg tablet 50 mg PO BID PRN Anxiety 10/06/23 10/06/23 History lamotrigine 300 mg tablet,extended 300 mg PO DAILY 10/06/23 10/06/23 History release 24 hr lorazepam 1 mg tablet 1 mg PO Q8H PRN Anxiety 10/06/23 10/06/23 History metformin 500 mg tablet 500 mg PO BIDWMEAL 10/06/23 10/06/23 History nitrofurantoin 100 mg capsule 100 mg PO BID 10/06/23 10/06/23 History oxcarbazepine 150 mg tablet 450 mg PO BID 10/06/23 10/06/23 History (Trileptal) pantoprazole 40 mg tablet,delayed 40 mg PO DAILY 10/06/23 10/06/23 History release pregabalin 75 mg capsule 75 mg PO BID 10/06/23 10/06/23 History sennosides 8.6 mg capsule (senna) 8.6 mg PO DAILY PRN Constipation 10/06/23 10/06/23 History sertraline 100 mg tablet 200 mg PO HS 10/06/23 10/06/23 History trazodone 100 mg tablet 100 mg PO HS 10/06/23 10/06/23 History Patient History Medical History (Updated 10/07/23 @ 21:57 by Guicho Saez MD) Pyelonephritis Constipation Surgical History (Updated 10/06/23 @ 19:08 by Isabell Leal PA-C) Hx of tonsillectomy Social History Smoking Status: Former smoker Tobacco Type: E-cigarettes / Vaping Second Hand Exposure: No; Do You Dip or Chew Tobacco: No; Tobacco Cessation Education Requested by Patient: No Hx Alcohol Use: Yes Alcohol type: hard liquor Hx Substance Use: Yes Last Used Substance Other:: 2022 Preferred Language: Arabic Communication Ability: Effective Communication Tools: Other Pathological Technician Required: No Beliefs That Will Affect Care: None Current Living Situation: Parent Other Information That Helps Us Care for You: No Feels Safe at Home: Yes Assistive Devices: None Review of Systems Constitutional: no fever or chills Gastrointestinal:no abdominal pain or diarrhea :some dysuria Results & Data Vital Signs (Past 12 Hours) Vital Signs Temp Pulse Resp BP Pulse Ox O2 Del Method 10/09/23 15:44 36.7 C 64 16 104/66 96 Room Air 10/09/23 15:11 36.8 C 72 18 102/57 L 97 Room Air 10/09/23 14:24 37.0 C 78 17 134/75 97 Room Air 10/09/23 06:58 36.4 C L 65 18 116/69 98 Room Air Laboratory Results Microbiology: 09/30: Urine culture via straight cath with no growth 10/02: Clean-catch urine culture with ESBL E coli 10/05: 2 sets of blood culture negative to date 10/06: Urine culture with multiple shawn Diagnostic Findings CT abdomen pelvis on 10/06: 1.No urinary calculi or hydronephrosis. 2. Unremarkable appearance of the kidneys on unenhanced CT. 3. No bowel obstruction. No evidence for acute appendicitis.
[2023-10-09] MEDS: SODIUM CHLORIDE 0.9% 1,000 ML IV SCH (17:32)
[2023-10-09] MEDS: lamoTRIgine 100 MG TAB PO SCH (21:49)
[2023-10-10 08:01] LABS: Basophils # (auto) 0.05 K/uL (0.00-0.20); Basophils % (auto) 0.7 %; Eosinophils # (auto) 0.14 K/uL (0.00-0.50); Hematocrit (blood only) 35.7 % (37.0-47.0); Hemoglobin 11.4 g/dl (12.0-16.0); Immature Granulocytes # (auto) 0.01 K/uL (0.01-0.20); Immature Granulocytes % (auto) 0.1 %; Lymphocytes # (auto) 2.17 K/uL (1.20-3.40); Lymphocytes % (auto) 30.6 %; Mean Corpuscular Hemoglobin 26.5 pg (25.0-34.0); Mean Corpuscular Hgb Conc 31.9 g/dL (32.0-36.0); Mean Corpuscular Volume 82.8 fL (80.0-100.0); Mean Platelet Volume 8.9 fL (9.4-12.4); Monocytes # (auto) 0.45 K/uL (0.11-0.59); Monocytes % (auto) 6.3 %; Neutrophils # (auto) 4.28 K/uL (1.40-6.50); Neutrophils % (auto) 60.3 %; Platelet Count 304 K/uL (130-400); RDW Coefficient of Variation 17.2 % (11.5-14.5); RDW Standard Deviation 51.1 fL (36.4-46.3); Red Blood Count 4.31 M/uL (4.20-5.40)
--- NOTE | 2023-10-10 08:11 | OB/GYN Consultation ---
Date of Consultation October 10, 2023 Assessment & Plan (1) Vaginal discharge: Candidiasis status post antibiotic therapy. Plan Diflucan is ordered for patient. Patient can follow-up as an outpatient after discharge. Thank you very much for the consult. History of Present Illness Reason for Consultation: Vaginal discharge Requesting Physician: Dr Funk Attending Physician: J Luis Morales MD History of Present Illness Patient is a 18-year-old female who was admitted few days ago to [facility] since including back pain pelvic pain and symptoms. Patient is a resident at the [facility]. She had had extensive workup including CT scan and has been diagnosed with recurrent UTI on antibiotic therapy. Prior to admission she had been started on p.o. antibiotics at her residence. per patient reported vaginal discharge to 10 this prompted a CONSULTING PROPERTY MANAGER consult. Patient has the following medical problems 1. History of pyelonephritis 2 depression 3 anxiety 4 bipolar disorder 5 schizophrenia d isorder 6 seizures 7 asthma 8 migraines 9 iron deficiency anemia 10 PCOS and 11 morbid obesity. I had the pleasure of meeting the patient. She is resting comfortably in bed in no acute distress. She reports she is vaginal discharge has been going on for few days since she started the antibiotics. She denies bleeding or irregular discomfort. Patient requested a pelvic exam. Allergies Allergy/AdvReac Type Severity Reaction Status Date / Time No Known Allergies Allergy Verified 10/03/23 00:53 Home Medications Medication Instructions Recorded Confirmed Type polyethylene glycol 3350 17 17 g PO DAILY #510 grams 10/03/23 10/06/23 Rx gram/dose oral powder (Miralax) albuterol sulfate 90 mcg/actuation 2 puff inhalation QID PRN 10/06/23 10/06/23 History aerosol inhaler (Ventolin HFA) Shortness Of Breath Or Wheezing aripiprazole 20 mg tablet 20 mg PO HS 10/06/23 10/06/23 History clotrimazole 2 % vaginal cream 1 appful vaginal HS 10/06/23 10/06/23 History (Gyne-Lotrimin) famotidine 20 mg tablet 20 mg PO BID 10/06/23 10/06/23 History ferrous sulfate 325 mg (65 mg 325 mg PO DAILY 10/06/23 10/06/23 History iron) tablet fluticasone 100 mcg-salmeterol 50 1 inh inhalation BID 10/06/23 10/06/23 History mcg/dose blistr powdr for inhalation haloperidol 10 mg tablet 10 mg PO Q8H PRN aggression 10/06/23 10/06/23 History hydroxyzine HCl 50 mg tablet 50 mg PO BID PRN Anxiety 10/06/23 10/06/23 History lamotrigine 300 mg tablet,extended 300 mg PO DAILY 10/06/23 10/06/23 History release 24 hr lorazepam 1 mg tablet 1 mg PO Q8H PRN Anxiety 10/06/23 10/06/23 History metformin 500 mg tablet 500 mg PO BIDWMEAL 10/06/23 10/06/23 History nitrofurantoin 100 mg capsule 100 mg PO BID 10/06/23 10/06/23 History oxcarbazepine 150 mg tablet 450 mg PO BID 10/06/23 10/06/23 History (Trileptal) pantoprazole 40 mg tablet,delayed 40 mg PO DAILY 10/06/23 10/06/23 History release pregabalin 75 mg capsule 75 mg PO BID 10/06/23 10/06/23 History sennosides 8.6 mg capsule (senna) 8.6 mg PO DAILY PRN Constipation 10/06/23 10/06/23 History sertraline 100 mg tablet 200 mg PO HS 10/06/23 10/06/23 History trazodone 100 mg tablet 100 mg PO HS 10/06/23 10/06/23 History Patient History Medical History (Updated 10/10/23 @ 08:03 by Jan Cantu MD) Pyelonephritis Constipation Surgical History (Updated 10/06/23 @ 19:08 by Isabell Leal PA-C) Hx of tonsillectomy Social History Smoking Status: Former smoker Tobacco Type: E-cigarettes / Vaping Second Hand Exposure: No; Do You Dip or Chew Tobacco: No; Tobacco Cessation Education Requested by Patient: No Hx Alcohol Use: Yes Alcohol type: hard liquor Hx Substance Use: Yes Last Used Substance Other:: 2022 Preferred Language: Irish Communication Ability: Effective Communication Tools: Facial Expression Hvac Residential Service Technician Required: No Beliefs That Will Affect Care: None Current Living Situation: Parent Other Information That Helps Us Care for You: No Feels Safe at Home: Yes Assistive Devices: None Review of Systems Genitourinary: Pelvic exam is done with a nurse lard renderer. There were no lesions seen in the vagina. No masses palpated in the vagina. Cervix is palpated. There is clear discharge consistent with candidiasis. Results & Data Vital Signs (Past 12 Hours) Vital Signs Temp Pulse Resp BP Pulse Ox O2 Del Method 10/10/23 06:58 36.5 C 70 17 103/65 95 Room Air 10/09/23 22:52 36.8 C 74 16 109/63 95 Room Air
[2023-10-10] MEDS: FLUCONAZOLE 50 MG TAB PO ONE (08:33)
[2023-10-10 08:50] LABS: Albumin Level 3.4 gm/dl (3.4-5.0); Anion Gap 5 (3-11); Bilirubin,Total 0.1 mg/dl (0.2-1.0); Calcium 8.3 mg/dl (8.6-10.3); Carbon Dioxide 25 mmol/L (21-32); Chloride 108 mmol/L (98-107); Magnesium 1.6 mg/dl (1.7-2.4); Potassium 4.1 mmol/L (3.5-5.1); Sodium 138 mmol/L (136-145)
[2023-10-10 08:56] LABS: Alanine Aminotransferase 14 U/L (7-52); Albumin Globulin Ratio 1.2 (0.9-2); Alkaline Phosphatase 75 U/L (34-104); Aspartate Aminotransferase 12 U/L (13-39); BUN Creatinine Ratio 29.1 (10-20); Blood Urea Nitrogen 16 mg/dl (6-23); Est GFR (African American) > 150.0 ml/min; Globulin 2.8 gm/dl (2.5-4.0); Glucose 109 mg/dl (70-99(Fasting)); Total Protein 6.2 gm/dl (6.0-8.3)
[2023-10-10] MEDS: MAGNESIUM SULFATE / D5W 1 GM/100 ML BAG IV SCH (09:34)
--- NOTE | 2023-10-10 11:52 | Hospitalist Progress Note ---
Date of Service October 10, 2023 Assessment & Plan (1) UTI due to extended-spectrum beta lactamase (ESBL) producing Escherichia coli: (2) Recurrent UTI: Plan: Patient is 18 year old female with PMH recurrent UTI, pyelonephritis, depression, anxiety, bipolar, schizoaffective disorder, seizure disorder, asthma, migraine headache, iron deficiency anemia, PCOS, obesity presented to ER for abnormal urine culture. Urinary symptoms and abdominal and bilateral back pain since 09/16/23. Tried on multiple outpatient antibiotics. 10/01/[address] abdomen pelvis and was started on Cipro for UTI 10/01/23 urine culture +ESBL e coli. 10/05/23 was recommended to discontinue cipro and start macrobid however pt with continued symptoms In ER afebrile, vitals stable. No leukocytosis In ER given ertapenem Given IV ertapenem 10/06 Repeat urine culture: Negative Blood culture: Negative CT abdomen and pelvis without contrast: No fluid collections, stones Continue IV Ertapenem ID consult 10/08 ID recommendations noted: I agree with the primary team on IV ertapenem 1 g daily. I would recommend treating as simple cystitis for a total duration of 5 days. However, if the patient continued to have symptoms on day 5, consider extending for a total of 7 days. I would consider using Macrobid 100 mg BID for step down oral therapy on discharge. 10/09 Symptoms much better Today is day #5 of IV ertapenem Completed course of IV antibiotic today Will continue with Macrobid 100 mg p.o. twice daily x 5 more days upon discharge Patient advised to take probiotic daily, drink plenty of water Follow-up with PCP in 1 week Also given 1 dose of Diflucan 150 mg p.o. for vaginal candidiasis by reefer engineer (3) Suicidal ideation: (4) Schizoaffective disorder: (5) Depression with anxiety: Plan: Currently at [facility] as voluntary admission for suicidal ideation and reported cutting and auditory hallucinations. Currently "feel better if I was just " but denies any active plan Will continue current medications that has been on from [facility] One to one observation Suicide precautions Mental health consult 10/06 Patient's mother inquiring if IV Abilify can be administered to the patient, they have the medication Patient's mother also states [facility] has cleared the patient for discharge 10/07 Discussed with psychiatry service Dr. Sri Stanley with receiving IM Abilify while admitted Also cleared for discharge to home when medically stable 10/08 Trileptal discontinued, changed to patient's usual Lamictal but dose split in half to BID Psychiatry service updated, requested reevaluation of patient they agree with current management (6) Asthma: Plan: No signs acute exacerbation Continue home inhalers (7) GERD (gastroesophageal reflux disease): Plan: Continue PPI, famotidine (8) Seizure disorder: Plan: Last reported seizure 01/2023 Continue home Lamictal 10/08 Patient reported patient moving up, something crawling on her legs Possible breakthrough seizure Neurologist consulted Recommend to discontinue Trileptal that was started for Lance, and resume usual Lamictal, change dosing from 300 mg daily to 150 mg twice daily 10/09 no recurrence of seizure mood stable (9) Iron deficiency anemia: Plan: H&H stable Continue ferrous sulfate DVT Prophylaxis- sc lovenox, Ambulate DC home PCP follow-up in 1 week Psychiatry follow-up in 1 week plan of care discussed with patient and her mother at the bedsidein detail and at length all questions answered They are understanding, agreeable, comfortable with the plan of care Admission and Anticipated Discharge Date Admission Date: October 06, 2023 Subjective Follow-up for ESBL E. coli UTI, etc. Seen resting in bed, comfortable, one-to-one sitter at the bedside States she feels fine overall Back pain, dysuria improving Mood is okay No chest pain, shortness of breath, palpitations, dizziness No other new symptoms States she is ready for discharge today, and is requesting for discharge today Discussed with patient's mother over the phone, at bedside, she is agreeable for discharge today as well Review of Systems Review of Systems: all noted and negative except for above Physical Exam Physical Exam: General- oriented x 3, not in distress, speaks in sentences with no effort or accessory muscle use Eyes- anicteric Neck- no JVD Lungs- clear breath sounds bilaterally, no rales/wheezes Heart- normal rate, regular rhythm; no murmurs Abdomen- normal bowel sounds, nondistended, soft, nontender Extremities- no pretibial edema, no calf tenderness Neuro- alert, oriented x 3; no gross focal neurologic deficits Skin- warm & dry Results & Data Results & Data Vital Signs (Past 12 Hours) Vital Signs Temp Pulse Resp BP Pulse Ox O2 Del Method 10/10/23 06:58 36.5 C 70 17 103/65 95 Room Air all noted and reviewed including below
--- NOTE | 2023-10-10 11:58 | Discharge Summary ---
Discharge Summary Date of Service October 10, 2023 Principal Dx & Hospital Course #1 = Principal Diagnosis (1) UTI due to extended-spectrum beta lactamase (ESBL) producing Escherichia coli: (2) Recurrent UTI: Patient is 18 year old female with PMH recurrent UTI, pyelonephritis, depression, anxiety, bipolar, schizoaffective disorder, seizure disorder, asthma, migraine headache, iron deficiency anemia, PCOS, obesity presented to ER for abnormal urine culture. Urinary symptoms and abdominal and bilateral back pain since 09/16/23. Tried on multiple outpatient antibiotics. 10/01/[address] abdomen pelvis and was started on Cipro for UTI 10/01/23 urine culture +ESBL e coli. 10/05/23 was recommended to discontinue cipro and start macrobid however pt with continued symptoms In ER afebrile, vitals stable. No leukocytosis In ER given ertapenem Given IV ertapenem 10/06 Repeat urine culture: Negative Blood culture: Negative CT abdomen and pelvis without contrast: No fluid collections, stones Continue IV Ertapenem ID consult 10/08 ID recommendations noted: I agree with the primary team on IV ertapenem 1 g daily. I would recommend treating as simple cystitis for a total duration of 5 days. However, if the patient continued to have symptoms on day 5, consider extending for a total of 7 days. I would consider using Macrobid 100 mg BID for step down oral therapy on discharge. 10/09 Symptoms much better Today is day #5 of IV ertapenem Completed course of IV antibiotic today Will continue with Macrobid 100 mg p.o. twice daily x 5 more days upon discharge Patient advised to take probiotic daily, drink plenty of water Follow-up with PCP in 1 week Also given 1 dose of Diflucan 150 mg p.o. for vaginal candidiasis by map editor (3) Suicidal ideation: (4) Schizoaffective disorder: (5) Depression with anxiety: Currently at [facility] as voluntary admission for suicidal ideation and reported cutting and auditory hallucinations. Currently "feel better if I was just " but denies any active plan Will continue current medications that has been on from [facility] to one observation Suicide precautions Mental health consult 10/06 Patient's mother inquiring if IV Abilify can be administered to the patient, they have the medication Patient's mother also states [facility] has cleared the patient for discharge 10/07 [address]ed with psychiatry service Dr. Sri Stanley with receiving IM Abilify while admitted Also cleared for discharge to home when medically stable 10/08 Trileptal discontinued, changed to patient's usual Lamictal but dose split in half to BID Psychiatry service updated, requested reevaluation of patient they agree with current management (6) Abnormal finding on CT scan: Hepatomegaly and hepatic steatosis found on CT scan dated 10/01/23 Further evaluation, management, follow-up as an outpatient (7) Asthma: No signs acute exacerbation Continue home inhalers (8) GERD (gastroesophageal reflux disease): Continue PPI, famotidine (9) Seizure disorder: Last reported seizure 01/2023 Continue home Lamictal 10/08 Patient reported patient moving up, something crawling on her legs Possible breakthrough seizure Neurologist consulted Recommend to discontinue Trileptal that was started for Lance, and resume usual Lamictal, change dosing from 300 mg daily to 150 mg twice daily 10/09 no recurrence of seizure mood stable (10) Iron deficiency anemia: H&H stable Continue ferrous sulfate DVT Prophylaxis- sc lovenox, Ambulate DC home PCP follow-up in 1 week Psychiatry follow-up in 1 week plan of care discussed with patient and her mother at the bedsidein detail and at length all questions answered They are understanding, agreeable, comfortable with the plan of care Notes For Next Care Provider Medication Changes From Visit Macrobid 100 mg p.o. twice daily x 5 days Lamotrigine changed from 300 mg p.o. daily to 150 mg p.o. twice daily Trileptal discontinued Admission HPI Per Admitting Provider Patient is 18 year old female with PMH recurrent UTI, pyelonephritis, depression, anxiety, bipolar, schizoaffective disorder, seizure disorder, asthma, migraine headache, iron deficiency anemia, PCOS, obesity presented to ER for abnormal urine culture. History obtained from patient as well as outpatient chart review. Patient reports dysuria, urinary frequency, urinary hesitancy and intermittent urinary retention as well as bilateral flank and lower abdominal pain since 09/16/2023. She is currently at the [facility] for the past 3 weeks per patient for suicidal ideations and auditory hallucinations. Patient reports was started on Bactrim for UTI followed by Augmentin however symptoms never improved. She was seen here at [facility] ER on 10/01/2023 for back and abdominal pain and urinary symptoms and had unremarkable CT abdomen pelvis and was started on Cipro for UTI per notes. Seen again on 10/03/23 in ER for urinary retention requiring straight cath and then able to self urinate. 10/01/23 urine culture +ESBL e coli. 10/05/23 was recommended to discontinue cipro and start macrobid. Reports chronic constipation. Reports chronic daily headaches and feels this is baseline. Denies other abdominal pain. Reports chronic SOB and denies any increased SOB or cough or wheezing. Denies fever/chills, diaphoresis, N/V/D, dizziness, syncope, vision changes, neck pain, CP, sore throat, otalgia, rhinorrhea, extremity weakness, extremity edema, rashes, urinary symptoms. Currently at [facility] as voluntary admission for suicidal ideation and reported cutting and auditory hallucinations. She states currently "feel better if I was just " but denies any active plan today to this provider. She states she has auditory hallucinations that tell her to hurt or kill herself. Patient states that she has been becoming agitated while hospitalized because she is frustrated with the voices talking to her. She admits to feeling depressed. She states she is currently living in [place], [place] but is from [place]. Patient reports history recurrent psych admissions since age 12 for similar symptoms. ER case contacted [facility] reported unable to provide daily transport for patient to receive outpatient IV antibiotics. Admission Exam Per Admitting Provider General: no distress, obese female Head: normocephalic, atraumatic Eyes: conjunctiva non-injected, anicteric ENT: normal inspection external ears, nose, mucous membranes moist Neck: supple, trachea midline Lungs: clear, no respiratory distress, no wheezing/rhonchi/rales CV: RRR, no murmur, no pretibial edema Abd: protuberant, normal BS, soft, + diffuse tenderness to palpation entire lower abdomen and bilateral CVA tenderness Ext: no cyanosis, no calf tenderness Neuro: A&O x 3, no focal deficits noted, somewhat flat affect Skin: warm, dry Discharge Exam General- oriented x 3, not in distress, speaks in sentences with no effort or accessory muscle use Eyes- anicteric Neck- no JVD Lungs- clear breath sounds bilaterally, no rales/wheezes Heart- normal rate, regular rhythm; no murmurs Abdomen- normal bowel sounds, nondistended, soft, nontender Extremities- no pretibial edema, no calf tenderness Neuro- alert, oriented x 3; no gross focal neurologic deficits Skin- warm & dry Updated Medication List Medication Instructions Recorded Confirmed Type polyethylene glycol 3350 17 17 g PO DAILY #510 grams 10/03/23 10/06/23 Rx gram/dose oral powder (Miralax) albuterol sulfate 90 mcg/actuation 2 puff inhalation QID PRN 10/06/23 10/06/23 History aerosol inhaler (Ventolin HFA) Shortness Of Breath Or Wheezing aripiprazole 20 mg tablet 20 mg PO HS 10/06/23 10/06/23 History clotrimazole 2 % vaginal cream 1 appful vaginal HS 10/06/23 10/06/23 History (Gyne-Lotrimin) famotidine 20 mg tablet 20 mg PO BID 10/06/23 10/06/23 History ferrous sulfate 325 mg (65 mg 325 mg PO DAILY 10/06/23 10/06/23 History iron) tablet fluticasone 100 mcg-salmeterol 50 1 inh inhalation BID 10/06/23 10/06/23 History mcg/dose blistr powdr for inhalation haloperidol 10 mg tablet 10 mg PO Q8H PRN aggression 10/06/23 10/06/23 History hydroxyzine HCl 50 mg tablet 50 mg PO BID PRN Anxiety 10/06/23 10/06/23 History lamotrigine 300 mg tablet,extended 300 mg PO DAILY 10/06/23 10/06/23 History release 24 hr lorazepam 1 mg tablet 1 mg PO Q8H PRN Anxiety 10/06/23 10/06/23 History metformin 500 mg tablet 500 mg PO BIDWMEAL 10/06/23 10/06/23 History nitrofurantoin 100 mg capsule 100 mg PO BID 10/06/23 10/06/23 History oxcarbazepine 150 mg tablet 450 mg PO BID 10/06/23 10/06/23 History (Trileptal) pantoprazole 40 mg tablet,delayed 40 mg PO DAILY 10/06/23 10/06/23 History release pregabalin 75 mg capsule 75 mg PO BID 10/06/23 10/06/23 History sennosides 8.6 mg capsule (senna) 8.6 mg PO DAILY PRN Constipation 10/06/23 10/06/23 History sertraline 100 mg tablet 200 mg PO HS 10/06/23 10/06/23 History trazodone 100 mg tablet 100 mg PO HS 10/06/23 10/06/23 History lamotrigine 150 mg tablet 150 mg PO BID 30 days #60 tabs 10/10/23 Rx (Lamictal) nitrofurantoin 100 mg PO BID 5 days #10 caps 10/10/23 Rx monohydrate/macrocrystals 100 mg capsule (Macrobid) Hospital Stay Data Consultations 10/06/23 14:19 ED Decision to Admit Stat 10/06/23 15:09 Consult Psychiatry Routine 10/07/23 16:37 Consult Infectious Diseases Routine 10/09/23 11:02 Consult Gynecology Routine 10/09/23 15:49 Consult Neurology Routine Diagnostic Imagining Performed 10/07/23 09:22 CT Abd and Pelvis [CT abd pelvis wo con] Routine CT OF THE ABDOMEN AND PELVIS WITHOUT CONTRAST CLINICAL HISTORY: Urinary tract infection, r/o pyelonephritis COMPARISON STUDY: CT of the abdomen and pelvis October 01, 2023 and KUB October 03, 2023. TECHNIQUE: Axial images of the abdomen and pelvis were obtained without IV contrast. Images were reviewed in the axial, sagittal, and coronal planes. Automated exposure control was utilized for the study. A dose lowering technique was utilized adhering to the principles of ALARA. FINDINGS: Lung bases are unremarkable. No pneumatosis, free air or portal venous gas is present. There are no renal, ureteral or bladder calculi. No perinephric infiltration is present. No renal fluid collections are identified on unenhanced exam. Unenhanced images of the liver, spleen, adrenal glands and pancreas are unremarkable. There is no evidence for acute appendicitis. There is moderate stool within the colon and rectum. No fluid collections are present. There is no free fluid. No biliary or pancreatic ductal dilatation. IMPRESSION: 1. No urinary calculi or hydronephrosis. 2. Unremarkable appearance of the kidneys on unenhanced CT. 3. No bowel obstruction. No evidence for acute appendicitis. ACT 112: Negative or not required by law. Electronically signed by: Aguila Lopez M.D. 10/07/2023 10:04 AM 10/01/23 CT SCAN OF THE ABDOMEN AND PELVIS WITH IV CONTRAST CLINICAL HISTORY: Generalized abdominal pain. Dysuria. COMPARISON STUDY: No priors. TECHNIQUE: Following the IV administration of 119 cc of Optiray 320, CT scan of the abdomen and pelvis is performed from the lung bases to the proximal femora. Images are reviewed in the axial, sagittal, and coronal planes. IV contrast was administered without complication. A dose lowering technique was utilized adh ering to the principles of ALARA. The Examination is degraded by large body habitus, and by streak artifact from the body wall abutting the CT gantry. CT DOSE: 1900.53 mGy.cm FINDINGS: Lung bases: The heart is normal in size and without pericardial effusion. The lung bases are clear. Liver: The contrast-enhanced liver is enlarged, measuring 20.6 cm in length. The liver demonstrates diffusely diminished attenuation indicating steatosis. There is no intrahepatic biliary ductal dilatation. The hepatic veins and portal veins are patent. Gallbladder: Unremarkable. Spleen: Normal in size and attenuation. Pancreas: Unremarkable. Adrenal glands: Unremarkable. Kidneys: The contrast enhanced kidneys are normal in size and without hydronephrosis. The kidneys enhance symmetrically. Abdominal vasculature: The abdominal aorta is normal in course and caliber. Bowel: There is mild colonic fecal retention. No bowel obstruction is seen. The appendix is well-visualized and normal. Peritoneum: There is no intraperitoneal free air or abdominal ascites. There is a small fat-containing umbilical hernia. Lymphadenopathy: None. Pelvic viscera: The bladder is decompressed and not well evaluated. The uterus and adnexa are normal as visualized. Skeletal structures: No lytic or blastic lesions are seen. There is sclerotic change seen in the sacroiliac joints. IMPRESSION: 1. No acute infectious or inflammatory findings are identified in the abdomen or pelvis. 2. Hepatomegaly and hepatic steatosis. 3. Additional findings as above. ACT 112: Negative or not required by law. Electronically signed by: Sai Alonzo M.D. 10/01/2023 7:55 PM Discharge Instructions Given to Patient (Per Discharging Provider) PLEASE REFER TO YOUR NEW MEDICATION LIST AND FOLLOW INSTRUCTIONS CAREFULLY. YOUR NEW MEDICATIONS INCLUDE: Macrobid-antibiotic for urinary tract infection Please take a probiotic daily for at least 1 month. Take yogurt daily as well. Drink plenty of water. Change Lamictal from 300 mg daily, to 150 mg twice a day. PLEASE CALL YOUR PRIMARY CARE PHYSICIAN OR RETURN TO THE ER IF WITH WORSENING OF SYMPTOMS, INCLUDING Abdominal pain, bladder pain, flank or side pain, back pain, fevers or chills, nausea vomiting, diarrhea, etc. CALL 911 FOR BREAKTHROUGH SEIZURE. FOLLOW UP WITH PRIMARY CARE PHYSICIAN In 1 week. Follow-up with psychiatrist in 1 week. Total Time Total Time Spent Total Time Spent (In Minutes): 55 minutes
== END 2023-10-10 18:52 | disposition home or self-care (01) | DRG 690 ==
LOC: ED 12:50 → SUATTDRO 14:26 → 3W 14:26